=== PATIENT | female | born 1930 | race Caucasian/White ===

== ENCOUNTER 2016-07-07 20:40 | Inpatient (IN) | payer MEDICAID, OTHER ==
[2016-07-07 21:05] VITALS: BMI 22.3
[2016-07-07] MEDS ORDERED: SODIUM CHLORIDE 0.9% 10 ML FLUSH FLUSH PRN (21:08)
--- NOTE | 2016-07-07 21:12 | EDPRACDOC ---
- General Information Information Source: Patient, Family - History of Present Illness Onset: 3 days HPI: Son states swelling in legs with weeping wounds without redness. Denies fever, cough, congestion, cp, sob, abd pain, n/v, changes in bowel or bladder. Hx CHF Mechanism: Reports: Unknown Circumstances: Reports: Spontaneous History of: Reports: Other (CHF) Severity: Reports: Moderate Able to Bear Weight: Limited Associated Signs & Symptoms: Reports: Abrasion, Swelling Pain In: Reports: Foot, Ankle, Leg <Olivia Hall - Last Filed: 07/07/16 21:35> <Gilberto Alvarez - Last Filed: 07/07/16 22:44> - General Information Chief Complaint: Lower Leg Pain Stated Complaint: SICK; LEG SWELLING Time Seen by Provider: 07/07/16 21:04 Home Medications: Home Medications Lisinopril 10 mg PO DAILY 10/13/15 Alprazolam [Xanax] 0.25 mg PO BID PRN 05/30/16 Ergocalciferol (Vitamin D2) [Vitamin D2 (ergocalciferol)] 50,000 units PO TUTH 05/30/16 Polyethylene Glycol 3350 [Miralax] 17 gm PO DAILY PRN 05/30/16 Atorvastatin Calcium [Lipitor] 20 mg PO DAILY #30 tablet 06/03/16 Metoprolol Succinate (XL) [Toprol Xl] 50 mg PO DAILY #30 tablet 06/03/16 Rivaroxaban [Xarelto] 20 mg PO DAILY #30 tablet 06/03/16 Ondansetron HCl [Zofran] 4 mg PO Q8H PRN 06/23/16 Digoxin [Lanoxin, Digitek] 0.125 mg PO DAILY #30 tab 06/28/16 Diltiazem HCl [Cardizem Cd] 240 mg PO QHS #30 cap.er.24h 06/28/16 Amlodipine Besylate [Norvasc] 5 mg PO HS 07/07/16 Allergies/Adverse Reactions: Allergies Allergy/AdvReac Type Severity Reaction Status Date / Time No Known Allergies Allergy Verified 06/23/16 11:19 ED Past Medical History - History Reviewed Yes Nurses notes reviewed and agree except as marked - Patient Medical History Neurological History: Denies: Cerebrovascular Accident, Seizures, Dementia Cardiac History: Reports: Coronary Artery Disease, Atrial Fibrillation, Hypertension (not on medication.), Congestive Heart Failure, Hypercholesterolemia, Valvular Heart Disease. Denies: Heart Attack, Cardiac Catheterization Respiratory History: Reports: COPD, Pneumonia. Denies: Asthma, Pulmonary Embolism GI/ History: Reports: Urinary Tract Infection Musculoskeletal History: Reports: Arthritis (right shoulder) Psychological History: Reports: Anxiety (bilat hip orif). Denies: Depression, Bipolar Disorder, Substance Use Disorder Surgical History: Reports: Other (Right total hip replacement.). Denies: Cholecystectomy, Cardiac Catheterization, Tonsillectomy/Adnoidectomy - Family Medical History Reports: Cardiac Disorders (Father: [place] but lived a long time.). Denies: Hypertension, Diabetes, Cancer, Stroke - Social Medical History Smoking Status: Former smoker Social History: Denies: Substance Use Disorder ETOH: None Substance Abuse: None <Olivia Hall - Last Filed: 07/07/16 21:35> EDM Review of Systems - Review of Systems Constitutional: No Symptoms Reported. negative: Fever, Chills, Weakness, Fatigue, Loss of Appetite Ears: No Symptoms Reported. negative: Pain, Hearing Loss, Drainage, Ear Pulling Throat: No Symptoms Reported. negative: Pain, Swelling Nose: No Symptoms Reported. negative: Congestion, Bleeding, Discharge, Injection, Swelling, Deformity, Ecchymosis, Tender, Abrasion, Laceration Mouth: No Symptoms Reported. negative: Pain, Drooling Respiratory: No Symptoms Reported. negative: Cough, Brassy Cough, Barky Cough, Shortness of Breath, Wheezing, Hemoptysis Cardiovascular: Edema. negative: No Symptoms Reported, Chest Pain, Cyanosis, Orthopnea, Palpitations, PND, Syncope, Skin Mottling Gastrointestinal: No Symptoms Reported. negative: Pain, Constipation, Nausea, Vomiting, Diarrhea, Melena, Formula Intolerance Genitourinary: No Symptoms Reported. negative: Dysuria, Hematuria, Frequency, Discharge, Bleeding, Testicular Pain, Neurological: No Symptoms Reported. negative: Headache, Dizziness, Seizure, Numbness, Weakness, Speech Difficulty, Gait Difficulty Musculoskeletal: Ankle, Foot, Leg Integumentary: Wound Allergic/Immunologic: No Symptoms Reported. negative: Hives, Itching Hematologic: No Symptoms Reported. negative: Lymphadenopathy, Easy Bruising, Easy Bleeding Psychiatric: No Symptoms Reported. negative: Anxiety, Depression, Hallucinations, Insomnia, Suicidal <Olivia Hall - Last Filed: 07/07/16 21:35> - Physical Exam Constitutional: Alert Oriented to: Time, Person, Place Last recorded Vital Signs: Last Vital Signs Temp 99.5 F 07/07/16 21:00 Pulse 102 07/07/16 21:00 Resp 20 07/07/16 21:00 BP 159/64 07/07/16 21:00 Pulse Ox 91 07/07/16 21:00 Oxygen Pulse Oxygen Saturation 91 O2 Device Room Air Oxygen Flow Rate Fraction of Inspired Oxygen ( FIO2) - HEENT Head: Normal ( normocephalic) Eye Exam: Normal (PERRL, EOMI, Sclera white) Neck: Normal (FROM, trachea at midline) - Respiratory/Cardiovascular Respiratory: Normal - CTA (BBS clear to auscultation without adventitious sounds ) Cardiovascular: Normal (RRR without murmur, gallop or rub) - GI Auscultation: Normal (NABS) Palpation: Normal (Soft,No rebound or guarding, non distended) Tenderness: Non tender - Musculoskeletal Back: Normal (Non-Tender) Extremities: Edema (+3 pitting edema), Pedal Edema - Integumentary Skin: Normal, Warm, Dry Lymphatics: Normal (no adenopathy) - Neurologic Memory Impaired: Normal Motor Function: Normal (Normal tone, Pulses 2+ No cyanosis or edema, FROM) Mood Description: Normal Perception: Normal <Olivia Hall - Last Filed: 07/07/16 21:35> - Physical Exam Last recorded Vital Signs: Last Vital Signs Temp 99.5 F 07/07/16 21:00 Pulse 102 07/07/16 21:00 Resp 20 07/07/16 21:00 BP 159/64 07/07/16 21:00 Pulse Ox 91 07/07/16 21:00 Oxygen Pulse Oxygen Saturation 91 O2 Device Room Air Oxygen Flow Rate Fraction of Inspired Oxygen ( FIO2) <Gilberto Alvarez - Last Filed: 07/07/16 22:44> ED Low Extremities Phys Exam - Thigh Bilateral Thigh Symptoms: Normal - Knee Bilateral Knee Symptoms: Normal Knee Ligaments: Normal Knee Meniscus: Normal - Lower Leg Bilateral Lower Leg Symptoms: Swelling, Mild Tenderness - Foot Bilateral Foot Symptoms: Swelling - Ankle Bilateral Ankle Symptoms: Swelling Achilles Tendon: Normal - Nail Bilateral Nail Symptoms: Normal - Nailbed Bilateral Nailbed Symptoms: Normal Soft Tissue: Normal - Digit Bilateral Digit Symptoms: Normal Digit Strength: Normal - Deficits Deficits: None - Integumentary Left Lower Leg Skin: Abrasion. negative: Erythema, Warm Lymphatics: Normal <Olivia Hall - Last Filed: 07/07/16 21:35> - Differential Diagnosis Abrasion, Other (chf, leg edema) - EKG EKG #1 EKG Time: 21:19 Rate: bpm: 102 Gaston: LAD Rhythm: Aflutter Block: None ST: Nonsp - Diagnostic Imaging Chest Image interpreted by: Radiologist IMPRESSION: Cardiomegaly with small pleural effusions bilaterally. Question a degree of underlying congestive heart failure. Interstitium appears prominent without well-defined edema. Suspect a degree of underlying pulmonary fibrotic type change. No airspace consolidation. The overall appearance is stable compared to recent prior study. <Olivia Hall E - Last Filed: 07/07/16 21:35> - Results 07/07/16 22:00 07/07/16 22:00 WBC 8.1 xk/uL (3.8-10.8) 07/07/16 22:00 RBC 3.74 xM/uL (4.20-5.40) L 07/07/16 22:00 Hgb 11.8 g/dL (12.0-16.0) L 07/07/16 22:00 Hct 33.9 % (36-47) L 07/07/16 22:00 MCV 91 fL (81-99) 07/07/16 22:00 MCH 31.5 pg (27-32) 07/07/16 22:00 MCHC 34.6 g/dl (33-36) 07/07/16 22:00 RDW 13.3 % (11.5-14.5) 07/07/16 22:00 Plt Count 124 xk/uL (130-400) L 07/07/16 22:00 MPV 8.1 fL (7.4-10.4) 07/07/16 22:00 Neut % (Auto) 81.2 % (45-76) H 07/07/16 22:00 Lymph % (Auto) 9.2 % (17-44) L 07/07/16 22:00 [place] % (Auto) 8.7 % (3-10) 07/07/16 22:00 Eos % (Auto) 0.5 % (0-5) 07/07/16 22:00 Baso % (Auto) 0.4 % (0-2) 07/07/16 22:00 Absolute Neuts (auto) 6.56 xk/uL (1.7-8.2) 07/07/16 22:00 Absolute Lymphs (auto) 0.73 xk/uL (0.65-4.75) 07/07/16 22:00 PT 14.4 SEC (9.2-11.2) H 07/07/16 22:00 INR 1.4 07/07/16 22:00 APTT 33.6 SEC (22-35) 07/07/16 22:00 Sodium 135 mEq/L (137-146) L 07/07/16 22:00 Potassium 3.7 mEq/L (3.5-5.1) 07/07/16 22:00 Chloride 103 mEq/L (98-107) 07/07/16 22:00 Carbon Dioxide 28 mMOL/L (22-33) 07/07/16 22:00 Anion Gap 8 mEq/L (8-16) 07/07/16 22:00 BUN 10 MG/DL (7-17) 07/07/16 22:00 Creatinine 0.70 MG/DL (0.52-1.04) 07/07/16 22:00 Estimated GFR (MDRD) > 60 mL/min (>=60) 07/07/16 22:00 Glucose 222 MG/DL (70-99) H 07/07/16 22:00 Calculated Osmolality 266 MOs/Kg (270-290) L 07/07/16 22:00 Calcium 7.6 MG/DL (8.4-10.2) L 07/07/16 22:00 Corrected Calcium 9.2 MG/DL (8.4-10.2) 07/07/16 22:00 Total Bilirubin 0.8 MG/DL (0.2-1.3) 07/07/16 22:00 AST 24 IU/L (14-36) 07/07/16 22:00 ALT 44 IU/L (9-52) 07/07/16 22:00 Alkaline Phosphatase 91 IU/L (55-165) 07/07/16 22:00 Troponin I 0.07 ng/mL (<.04) 07/07/16 22:00 Wki-W-Mempvhqmxgq Pept 2710 pg/mL (0-1800) H 07/07/16 22:00 Total Protein 5.3 G/DL (6.3-8.2) L 07/07/16 22:00 Albumin 2.4 G/DL (3.5-5.0) L 07/07/16 22:00 Digoxin 1.10 NG/ML (0.8-2.00) 07/07/16 22:00 Lab Results 07/07/16 07/07/16 07/07/16 22:00 22:00 22:00 WBC 8.1 RBC 3.74 L Hgb 11.8 L Hct 33.9 L MCV 91 MCH 31.5 MCHC 34.6 RDW 13.3 Plt Count 124 L MPV 8.1 Neut % (Auto) 81.2 H Lymph % (Auto) 9.2 L [place] % (Auto) 8.7 Eos % (Auto) 0.5 Baso % (Auto) 0.4 Absolute Neuts (auto) 6.56 Absolute Lymphs (auto) 0.73 PT 14.4 H INR 1.4 APTT 33.6 Sodium Potassium Chloride Carbon Dioxide Anion Gap BUN Creatinine Estimated GFR (MDRD) Glucose Calculated Osmolality Calcium Corrected Calcium Total Bilirubin AST ALT Alkaline Phosphatase Troponin I Quy-Z-Aswiexqjspv Pept Total Protein Albumin Digoxin 1.10 07/07/16 22:00 WBC RBC Hgb Hct MCV MCH MCHC RDW Plt Count MPV Neut % (Auto) Lymph % (Auto) [place] % (Auto) Eos % (Auto) Baso % (Auto) Absolute Neuts (auto) Absolute Lymphs (auto) PT INR APTT Sodium 135 L Potassium 3.7 Chloride 103 Carbon Dioxide 28 Anion Gap 8 BUN 10 Creatinine 0.70 Estimated GFR (MDRD) > 60 Glucose 222 H Calculated Osmolality 266 L Calcium 7.6 L Corrected Calcium 9.2 Total Bilirubin 0.8 AST 24 ALT 44 Alkaline Phosphatase 91 Troponin I 0.07 Ygm-N-Kqkmmntkjhb Pept 2710 H Total Protein 5.3 L Albumin 2.4 L Digoxin <Gilberto Alvarez - Last Filed: 07/07/16 22:44> <Olivia Hall - Last Filed: 07/07/16 21:35> - Departure Yes I personally saw and evaluated the patient. Disposition: Admit IP To This Hospital Education/Counseling Given To: Patient Education/Counseling Given Regarding: Diagnosis, Treatment, Prognosis Decision to Admit Time: 22:44 Decision to admit date: 07/07/16 Decision to admit: from ED - Physician Consulted Hospitalist Time Called: 22:44 Provider Called: Art Robertson Time Milk Driver Returned Call: 22:44 <Gilberto Alvarez - Last Filed: 07/07/16 22:44> - Departure Condition: Fair Final Diagnosis: indeterminate troponin CHF exacerbation Qualifiers: Congestive heart failure type: systolic Qualified Code(s): I50.23 - Acute on chronic systolic (congestive) heart failure Chest pain Qualifiers: Chest pain type: other chest pain Qualified Code(s): R07.89 - Other chest pain ; R07.8 - Other chest pain Instructions: *Heart Failure (Activity, Diet, Worsening Symptoms, Weight Monitoring)(ED), Chest Pain (ED), Chest Wall Pain
--- NOTE | 2016-07-07 21:34 | DIRPT ---
CLINICAL DATA: Lower extremity edema. Atrial fibrillation. EXAM: PORTABLE CHEST 1 VIEW COMPARISON: June 24, 2016 FINDINGS: There are small pleural effusions bilaterally. There is generalized interstitial prominence without zayda edema or consolidation. Heart is mildly enlarged with pulmonary vascularity within normal limits. There is atherosclerotic calcification in aorta. There is degenerative change in each shoulder. IMPRESSION: Cardiomegaly with small pleural effusions bilaterally. Question a degree of underlying congestive heart failure. Interstitium appears prominent without well-defined edema. Suspect a degree of underlying pulmonary fibrotic type change. No airspace consolidation. The overall appearance is stable compared to recent prior study. Electronically Signed By: Anderson Archuleta III, M.D. On: 07/07/2016 21:31
[2016-07-07 22:07] LABS: AUTOMATED BASOPHIL 0.4 % (0-2); AUTOMATED EOSINOPHIL 0.5 % (0-5); AUTOMATED LYMPH 9.2 % (17-44); AUTOMATED MONOCYTE 8.7 % (3-10); AUTOMATED NEUTROPHIL 81.2 % (45-76); MPV 8.1 fL (7.4-10.4)
[2016-07-07 22:14] LABS: PARTIAL THROMB. TIME 33.6 SEC (22-35); PT-INR 1.4
[2016-07-07 22:21] LABS: BLOOD UREA NITROGEN 10 MG/DL (7-17); CALC CORRECTED 9.2 MG/DL (8.4-10.2); CALCIUM 7.6 MG/DL (8.4-10.2); CALCULATED OSMOLALITY 266 MOs/Kg (270-290); CHLORIDE 103 mEq/L (98-107); GLUCOSE 222 MG/DL (70-99); SODIUM LEVEL 135 mEq/L (137-146); TOTAL PROTEIN 5.3 G/DL (6.3-8.2)
[2016-07-07] MEDS ORDERED: FUROSEMIDE 20 MG TAB PO ONE (22:26)
[2016-07-07] MEDS ORDERED: FUROSEMIDE 20 MG/2 ML VIAL IV ONE (22:43)
[2016-07-07 22:55] LABS: ALLEN'S TEST PASS; BEb 2.9 (+/- 2); TCO2 26.7 MMOL/L (23-27)
[2016-07-07 22:56] LABS: ABG Draw Site Right Radial
[2016-07-07] MEDS ORDERED: GLUCOSE (ORAL GEL) 15 GM TUBE PO PRN (23:27)
[2016-07-07] MEDS ORDERED: DEXTROSE 25 GM/50 ML PFS IV PRN (23:27)
[2016-07-07] MEDS ORDERED: GLUCAGON 1 MG VIAL SQ PRN (23:27)
[2016-07-07] MEDS ORDERED: Albuterol/Ipratropium Neb 3 ML NEB NEB PRN (23:27)
[2016-07-07] MEDS ORDERED: ONDANSETRON HCL 4 MG ODT TAB PO PRN (23:35)
[2016-07-07] MEDS ORDERED: ALPRAZOLAM 0.25 MG TAB PO PRN (23:35)
[2016-07-07] MEDS ORDERED: PEG-ELECTROLYTE 17 GM PACK PO PRN (23:35)
--- NOTE | 2016-07-07 23:40 | HISTPHYS ---
- Chief Complaint sob, legs swelling with fluid leaking, - History of Present Illness 86 yo wf presented emergency room early on today for evaluation of worsening difficulties breathing and peripheral edema.. Patient reports that since recent discharge from [facility] she has been compliant with medical regimen and with no salt diet. Despite that she has gained weight, developed worsening leg edema and she has developed worsening difficulties breathing with PND orthopnea. Patient reports of the past couple days she has noticed fluid dripping from her legs. On arrival in ED she was found hypoxic with PaO2 of only 57 and in moderate respiratory distress. Medical consultation was phoned in for inpatient treatment. - Medical History Cardiac History: Reports: Coronary Artery Disease, Atrial Fibrillation, Hypertension (not on medication.), Congestive Heart Failure, Hypercholesterolemia, Valvular Heart Disease. Denies: Heart Attack, Cardiac Catheterization Respiratory History: Reports: COPD, Pneumonia. Denies: Asthma, Pulmonary Embolism GI/ History: Reports: Urinary Tract Infection, Gastroesophageal Reflux Musculoskeletal History: Reports: Arthritis (right shoulder), Osteoarthritis Neurological History: Denies: Cerebrovascular Accident, Seizures, Dementia Psychological History: Reports: Anxiety (bilat hip orif). Denies: Depression, Bipolar Disorder, Substance Use Disorder - Surgical History Reports: Other (Right total hip replacement bilat). Denies: Cholecystectomy, Cardiac Catheterization, Tonsillectomy/Adnoidectomy - Medictions/Allergies Allergies No Known Allergies Allergy (Verified 06/23/16 11:19) Current Medication List: Reviewed Home Medications Lisinopril 10 mg PO DAILY 10/13/15 Alprazolam [Xanax] 0.25 mg PO BID PRN 05/30/16 Ergocalciferol (Vitamin D2) [Vitamin D2 (ergocalciferol)] 50,000 units PO TUTH 05/30/16 Polyethylene Glycol 3350 [Miralax] 17 gm PO DAILY PRN 05/30/16 Atorvastatin Calcium [Lipitor] 20 mg PO DAILY #30 tablet 06/03/16 Metoprolol Succinate (XL) [Toprol Xl] 50 mg PO DAILY #30 tablet 06/03/16 Rivaroxaban [Xarelto] 20 mg PO DAILY #30 tablet 06/03/16 Ondansetron HCl [Zofran] 4 mg PO Q8H PRN 06/23/16 Digoxin [Lanoxin, Digitek] 0.125 mg PO DAILY #30 tab 12/31/16 Diltiazem HCl [Cardizem Cd] 240 mg PO QHS #30 cap.er.24h 06/28/16 Amlodipine Besylate [Norvasc] 5 mg PO HS 07/07/16 - Family History Reports: Cardiac Disorders (Father: [place] but lived a long time.), Respiratory Disorders. Denies: Hypertension, Diabetes, Cancer, Stroke - Social History Travel Outside of [place] in the Last 3 Months?: No Lives: With Family Smoking Status: Former smoker Social History: Denies: Substance Use Disorder - Review of Systems Constitutional: Loss of Appetite, Weakness, Weight gain Eyes: No Symptoms Reported Ears: No Symptoms Reported Nose: No Symptoms Reported Mouth: No Symptoms Reported Throat/Neck: No Symptoms Reported Respiratory: Shortness of Breath, Dyspnea Cardiovascular: Orthopnea, PND Gastrointestinal: Constipation, Heartburn Genitourinary: No Symptoms Reported Neurological: Numbness, Weakness Musculoskeletal:: Arthritis Integumentary: No Symptoms Reported Allergic/Immunologic: No Symptoms Reported Hematologic: No Symptoms Reported Endocrine: No Symptoms Reported Psychiatric: No Symptoms Reported - Physical Exam Vital Signs: Initial Vitals Temperature 99.5 F 07/07/16 21:00 Pulse Rate 102 07/07/16 21:00 Respiratory Rate 07/07/16 21:00 Blood Pressure 159/64 07/07/16 21:00 Pulse Oxygen Saturation 91 07/07/16 21:00 Constitutional: Alert, Distress Oriented to: Time, Person, Place - HEENT Head: Normal Eye: Normal Oropharynx: Normal ENT EAC: Normal TMJ: Normal Nose: No Symptoms Reported Respiratory: Diminished, Rales, Tachypnea, Wheezes Cardiovascular: Normal, Systolic murmur - GI Auscultation: Normal Palpation: Normal Tenderness: Non tender Rectal Exam: Deferred - Exam Deferred: Yes - Musculoskeletal Back: Normal Extremities: Cyanosis, Edema Spine: limited range of motion - Integumentary Skin: Normal, Warm, Dry Lymphatics: Normal - Neurologic Memory Impaired: Normal, Short-term Motor Function: Abnormal Cranial Nerve: Normal Cerebellar: Normal Mood Description: Normal, Anxious Thought: Coherent Perception: Normal - Focused CV Perfusion Exam Vital Signs: Last Vital Signs Temp 99.5 F 07/07/16 21:00 Pulse 102 07/07/16 21:00 Resp 20 07/07/16 21:00 BP 159/64 07/07/16 21:00 Pulse Ox 91 07/07/16 21:00 - Diagnostic Findings Allergies No Known Allergies Allergy (Verified 06/23/16 11:19) 07/07/16 22:00 07/07/16 22:00 Abnormal Lab Results 07/07/16 07/07/16 07/07/16 22:00 22:00 22:00 RBC 3.74 L Hgb 11.8 L Hct 33.9 L Plt Count 124 L Neut % (Auto) 81.2 H Lymph % (Auto) 9.2 L PT 14.4 H pH pCO2 pO2 Base Excess Sodium 135 L Glucose 222 H Calculated Osmolality 266 L Calcium 7.6 L Wnq-X-Bgailesxgra Pept 2710 H Total Protein 5.3 L Albumin 2.4 L 07/07/16 22:50 RBC Hgb Hct Plt Count Neut % (Auto) Lymph % (Auto) PT pH 7.500 H pCO2 33.0 L pO2 57.0 L Base Excess 2.9 H Sodium Glucose Calculated Osmolality Calcium Aaj-Q-Wxvkxhlvttk Pept Total Protein Albumin Last Vital Signs Temp 99.5 F 07/07/16 21:00 Pulse 102 07/07/16 21:00 Resp 20 07/07/16 21:00 BP 159/64 07/07/16 21:00 Pulse Ox 91 07/07/16 21:00 Patient Name: ZURI PATRICIA LOC: ED : 1930 AGE: 86 Order Date:07/07/16 Date of Service:03/15 Report # [id number] Ord Physician: Olivia Hall Exam # [id number] Emergency Physician: Provider,ER Exam(s): [id number] RAD/DG CHEST PORTABLE CLINICAL DATA: Lower extremity edema. Atrial fibrillation. EXAM: PORTABLE CHEST 1 VIEW COMPARISON: June 24, 2016 FINDINGS: There are small pleural effusions bilaterally. There is generalized interstitial prominence without zayda edema or consolidation. Heart is mildly enlarged with pulmonary vascularity within normal limits. There is atherosclerotic calcification in aorta. There is degenerative change in each shoulder. IMPRESSION: Cardiomegaly with small pleural effusions bilaterally. Question a degree of underlying congestive heart failure. Interstitium appears prominent without well-defined edema. Suspect a degree of underlying pulmonary fibrotic type change. No airspace consolidation. The overall appearance is stable compared to recent prior study. Electronically Signed By: Anderson Archuleta III, M.D. On: 07/07/2016 21:31 Electronically EKG:aflutter - Assessment (1) CHF exacerbation I50.9 - HEART FAILURE, UNSPECIFIED Acute Present on Admission: Yes Qualifiers: Congestive heart failure type: systolic Qualified Code(s): I50.23 - Acute on chronic systolic (congestive) heart failure Patient be admitted to monitor bed patient will be admitted to monitor bed, she received Lasix 60 mg IV q.12 hours. Monitor weight and fluid balance. (2) Acute on chronic respiratory failure with hypoxemia J96.21 - ACUTE AND CHRONIC RESPIRATORY FAILURE WITH HYPOXIA Acute Present on Admission: Yes Continue supplemental O2. Monitor pulmonary status. (3) Atrial fibrillation with RVR I48.91 - UNSPECIFIED ATRIAL FIBRILLATION Chronic Present on Admission: Yes Continue home meds. Keep magnesium more than 2 and potassium more than 4. Continue anticoagulation of Xarelto (4) HTN (hypertension) I10 - ESSENTIAL (PRIMARY) HYPERTENSION Acute Present on Admission: Yes Qualifiers: Hypertension type: essential hypertension Qualified Code(s): I10 - Essential (primary) hypertension Continue home meds keep SBP less than 140. (5) COPD (chronic obstructive pulmonary disease) with emphysema J43.9 - EMPHYSEMA, UNSPECIFIED Chronic Present on Admission: Yes Qualifiers: Emphysema type: unspecified Qualified Code(s): J43.9 - Emphysema, unspecified Continue supplemental O2 and nebulized bronchodilators. Continue incentive spirometer as well (6) GERD (gastroesophageal reflux disease) K21.9 - GASTRO-ESOPHAGEAL REFLUX DISEASE WITHOUT ESOPHAGITIS Chronic Present on Admission: Yes Qualifiers: Esophagitis presence: without esophagitis Qualified Code(s): K21.9 - Gastro -esophageal reflux disease without esophagitis Continue PPI Case Care Discussed with: Patient, Family, Nursing Staff Total Time: 60 min . Critical Care: No Code: 15866
[2016-07-07] MEDS ORDERED: NS 1,000 ML IV SCH (23:45)
[2016-07-08 00:38] LABS: LEUKOCYTES/URINE NEG (NEGATIVE); NITRITE/URINE NEG (NEGATIVE); RBC/URINE 0-2 (0-5); URINE OCCULT BLOOD NEG (NEG/TRACE)
[2016-07-08] MEDS ORDERED: FUROSEMIDE 40 MG/4 ML VIAL IV SCH (01:00)
[2016-07-08] MEDS: REGULAR INSULIN 100 UNITS/ML - 3 ML VIAL SQ SCH ×4 (01:55→16:40)
[2016-07-08] MEDS ORDERED: Vaccine Screening Complete SCH (02:00)
[2016-07-08] MEDS: Albuterol/Ipratropium Neb 3 ML NEB NEB SCH ×3 (03:24→15:06)
[2016-07-08 04:28] LABS: BLOOD UREA NITROGEN 10 MG/DL (7-17); CALCIUM 7.6 MG/DL (8.4-10.2); CALCULATED OSMOLALITY 264 MOs/Kg (270-290); CHLORIDE 101 mEq/L (98-107); GLUCOSE 149 MG/DL (70-99); SODIUM LEVEL 136 mEq/L (137-146)
[2016-07-08] MEDS: LISINOPRIL 10 MG TAB PO SCH (08:51)
[2016-07-08] MEDS: POTASSIUM CHLORIDE 20 MEQ TAB PO SCH ×2 (08:54→16:40)
[2016-07-08] MEDS: DIGOXIN 0.125 MG TAB PO SCH (08:54)
[2016-07-08] MEDS: ATORVASTATIN 20 MG TAB PO SCH (08:55)
[2016-07-08] MEDS ORDERED: Non-Formulary Medication ITEM (Rivaroxaban [Xarelto] 20 MG) PO SCH (09:00)
[2016-07-08] MEDS ORDERED: METOPROLOL (TOPROL-XL) 50 MG TAB PO SCH (09:00)
[2016-07-08] MEDS ORDERED: ERGOCALCIFEROL (VITAMIN D2) 50000 UNITS CAP PO SCH (09:00)
[2016-07-08] MEDS ORDERED: RIVAROXABAN 10 MG TAB PO SCH (09:00)
--- NOTE | 2016-07-08 09:34 | GENMEDPROG ---
Chief Complaint: Feels okay. No complaints. Minimal peripheral edema. Denies chest pain or shortness of breath. Heart rate is currently stable. Notes Reviewed: Yes Events from last night noted and discussed with Clinical Staff Current Medication List: Reviewed Currently: Denies: Cough, Wheezing, PANTOJA, SOB, Nausea and Vomiting, Abdominal Pain, Chest Pain DVT Prophylaxis: Yes - Physical Examination Vital Signs and I&O: Last Vital Signs Temp 98.9 F 07/08/16 08:00 Pulse 95 07/08/16 08:00 Resp 20 07/08/16 08:00 BP 107/51 L 07/08/16 08:00 Pulse Ox 97 07/08/16 08:00 Oxygen Pulse Oxygen Saturation 97 O2 Device Nasal Cannula Oxygen Flow Rate 2 Fraction of Inspired Oxygen ( FIO2) Intake & Output 07/05/16 07/06/16 07/07/16 07/08/16 23:59 23:59 23:59 23:59 Intake Total 0 Output Total 1200 Balance -1200 Patient's weight 59.024 kg General: Alert, Oriented x3, Cooperative, No acute distress. negative: Well appearing (Chronically ill-appearing) HEENT: Normal, PERRLA, EOMI, Anicteric Sclera Neck: Non-tender, Full range of motion, Normal Trachea alignment, Normal inspection. negative: JVD Lymphatics: Normal. negative: Adenopathy Respiratory: Diminished (But otherwise clear) Cardiovascular: Regular rate and rhythm, Irregular GI: Normal bowel sounds, Soft, Non tender, No hepatospenomegaly Extremities/Musculoskeletal: Normal pulses, Swelling (Mild. Significant wrinkling over lower extremities.), Edema Skin: Warm,Dry and Intact, No rashes, No breakdown Neurological: Normal speech, Strength at 5/5 X4 ext, Normal tone, Cranial nerves 3-12 NL Psych/Mental Status: Appropriate, Normal Affect, Cooperative Lab/DI/Studies Reviewed: Laboratory Results - last 24 hr 07/07/16 07/07/16 07/07/16 22:00 22:00 22:00 WBC 8.1 RBC 3.74 L Hgb 11.8 L Hct 33.9 L MCV 91 MCH 31.5 MCHC 34.6 RDW 13.3 Plt Count 124 L MPV 8.1 Neut % (Auto) 81.2 H Lymph % (Auto) 9.2 L [place] % (Auto) 8.7 Eos % (Auto) 0.5 Baso % (Auto) 0.4 Absolute Neuts (auto) 6.56 Absolute Lymphs (auto) 0.73 PT 14.4 H INR 1.4 APTT 33.6 Puncture Site pH pCO2 pO2 HCO3 Total CO2 Base Excess FiO2 % Specimen Drawn By Sodium 135 L Potassium 3.7 Chloride 103 Carbon Dioxide 28 Anion Gap 8 BUN 10 Creatinine 0.70 Estimated GFR (MDRD) > 60 Glucose 222 H POC Capillary Glucose Calculated Osmolality 266 L Calcium 7.6 L Corrected Calcium 9.2 Magnesium Total Bilirubin 0.8 AST 24 ALT 44 Alkaline Phosphatase 91 Troponin I 0.07 Aij-O-Mmuvnbssqwn Pept 2710 H Total Protein 5.3 L Albumin 2.4 L TSH Urine Color Urine Clarity Urine pH Ur Specific [place] Urine Protein Urine Glucose (UA) Urine Ketones Urine Occult Blood Urine Nitrite Urine Bilirubin Urine Urobilinogen Ur Leukocyte Esterase Urine RBC Ur Epithelial Cells Urine Mucus Digoxin 07/07/16 07/07/16 07/07/16 22:00 22:00 22:50 WBC RBC Hgb Hct MCV MCH MCHC RDW Plt Count MPV Neut % (Auto) Lymph % (Auto) [place] % (Auto) Eos % (Auto) Baso % (Auto) Absolute Neuts (auto) Absolute Lymphs (auto) PT INR APTT Puncture Site Right radial pH 7.500 H pCO2 33.0 L pO2 57.0 L HCO3 25.7 Total CO2 26.7 Base Excess 2.9 H FiO2 % Room air Specimen Drawn By Daniel Sodium Potassium Chloride Carbon Dioxide Anion Gap BUN Creatinine Estimated GFR (MDRD) Glucose POC Capillary Glucose Calculated Osmolality Calcium Corrected Calcium Magnesium Total Bilirubin AST ALT Alkaline Phosphatase Troponin I Ydz-D-Jijizzcioai Pept Total Protein Albumin TSH 5.13 H Urine Color Urine Clarity Urine pH Ur Specific [place] Urine Protein Urine Glucose (UA) Urine Ketones Urine Occult Blood Urine Nitrite Urine Bilirubin Urine Urobilinogen Ur Leukocyte Esterase Urine RBC Ur Epithelial Cells Urine Mucus Digoxin 1.10 07/08/16 07/08/16 07/08/16 00:05 00:50 01:29 WBC RBC Hgb Hct MCV MCH MCHC RDW Plt Count MPV Neut % (Auto) Lymph % (Auto) [place] % (Auto) Eos % (Auto) Baso % (Auto) Absolute Neuts (auto) Absolute Lymphs (auto) PT INR APTT Puncture Site pH pCO2 pO2 HCO3 Total CO2 Base Excess FiO2 % Specimen Drawn By Sodium Potassium Chloride Carbon Dioxide Anion Gap BUN Creatinine Estimated GFR (MDRD) Glucose POC Capillary Glucose 151 H Calculated Osmolality Calcium Corrected Calcium Magnesium Total Bilirubin AST ALT Alkaline Phosphatase Troponin I 0.07 Aco-W-Trabqwcawlv Pept Total Protein Albumin TSH Urine Color Yellow Urine Clarity Clear Urine pH 6.0 Ur Specific [place] 1.010 Urine Protein Neg Urine Glucose (UA) 3+ H Urine Ketones Neg Urine Occult Blood Neg Urine Nitrite Neg Urine Bilirubin Neg Urine Urobilinogen 8 H Ur Leukocyte Esterase Neg Urine RBC 0-2 Ur Epithelial Cells Occ Urine Mucus Occ Digoxin 07/08/16 07/08/16 07/08/16 04:00 04:00 06:19 WBC RBC Hgb Hct MCV MCH MCHC RDW Plt Count MPV Neut % (Auto) Lymph % (Auto) [place] % (Auto) Eos % (Auto) Baso % (Auto) Absolute Neuts (auto) Absolute Lymphs (auto) PT INR APTT Puncture Site pH pCO2 pO2 HCO3 Total CO2 Base Excess FiO2 % Specimen Drawn By Sodium 136 L Potassium 3.3 L Chloride 101 Carbon Dioxide 30 Anion Gap 8 BUN 10 Creatinine 0.70 Estimated GFR (MDRD) > 60 Glucose 149 H POC Capillary Glucose 130 H Calculated Osmolality 264 L Calcium 7.6 L Corrected Calcium Magnesium 1.60 Total Bilirubin AST ALT Alkaline Phosphatase Troponin I 0.08 Rps-C-Vpfubvqimmm Pept Total Protein Albumin TSH Urine Color Urine Clarity Urine pH Ur Specific [place] Urine Protein Urine Glucose (UA) Urine Ketones Urine Occult Blood Urine Nitrite Urine Bilirubin Urine Urobilinogen Ur Leukocyte Esterase Urine RBC Ur Epithelial Cells Urine Mucus Digoxin - Assessment (1) CHF exacerbation Acute I50.9 - HEART FAILURE, UNSPECIFIED Qualifiers: Congestive heart failure type: systolic Qualified Code(s): I50.23 - Acute on chronic systolic (congestive) heart failure Comment/Plan: Decrease Lasix dose. Recommendations from Cardiology on previous evaluation had been to focus on AFib rate control. Hope was that EF would improve and CHF would be stable. Lower extremity edema appears much better. Will continue Lasix but at lower dose. Out of bed and ambulate. Patient states that she feels well with no respiratory difficulty (2) HTN (hypertension) Acute I10 - ESSENTIAL (PRIMARY) HYPERTENSION Qualifiers: Hypertension type: essential hypertension Qualified Code(s): I10 - Essential (primary) hypertension Comment/Plan: Blood pressure stable. This had been an issue last hospitalization with relative hypotension. We are attempting to manage rapid AFib but were unable to titrate medications too aggressively (3) Essential (primary) hypertension Acute I10 - ESSENTIAL (PRIMARY) HYPERTENSION Comment/Plan: Continue home medication metoprolol at increased dose, for rate control as well. (4) Atrial fibrillation with RVR Chronic I48.91 - UNSPECIFIED ATRIAL FIBRILLATION Comment/Plan: Continue home meds. Keep magnesium more than 2 and potassium more than 4. Continue anticoagulation of Xarelto Case Care Discussed with: Patient, Nursing Staff, Physical Therapy, Resource Management, Respiratory Therapy, Editor Dictionary
[2016-07-08] MEDS ORDERED: AMLODIPINE 5 MG TAB PO SCH (21:00)
[2016-07-09] MEDS: REGULAR INSULIN 100 UNITS/ML - 3 ML VIAL SQ SCH ×3 (00:04→11:35)
[2016-07-09] MEDS: Albuterol/Ipratropium Neb 3 ML NEB NEB SCH ×2 (00:44→08:39)
[2016-07-09 05:25] LABS: AUTOMATED BASOPHIL 0.3 % (0-2); AUTOMATED EOSINOPHIL 0.8 % (0-5); AUTOMATED LYMPH 17.3 % (17-44); AUTOMATED MONOCYTE 9.3 % (3-10); AUTOMATED NEUTROPHIL 72.3 % (45-76); MPV 8.4 fL (7.4-10.4)
[2016-07-09 05:35] LABS: BLOOD UREA NITROGEN 12 MG/DL (7-17); CALCIUM 7.9 MG/DL (8.4-10.2); CALCULATED OSMOLALITY 262 MOs/Kg (270-290); CHLORIDE 103 mEq/L (98-107); GLUCOSE 127 MG/DL (70-99); SODIUM LEVEL 135 mEq/L (137-146)
[2016-07-09 07:49] VITALS: BP 125/58; TEMP 98.5
[2016-07-09] MEDS ORDERED: RIVAROXABAN 10 MG TAB PO SCH (08:00)
[2016-07-09] MEDS ORDERED: FUROSEMIDE 40 MG TAB PO SCH (08:00)
--- NOTE | 2016-07-09 08:03 | PCM.DCS92 ---
- Final/Secondary Discharge Diagnosis (1) CHF exacerbation Acute I50.9 - HEART FAILURE, UNSPECIFIED Present on Admission: Yes systolic I50.23 - Acute on chronic systolic (congestive) heart failure Comment: Doing well. Diuresed well. Minimal peripheral edema. Stable for discharge home and blood pressures should be able to tolerate low-dose Lasix. Recommendations from Cardiology on previous evaluation had been to focus on AFib rate control. Hope was that EF would improve and CHF would be stable. Patient states that she feels well with no respiratory difficulty (2) HTN (hypertension) Acute I10 - ESSENTIAL (PRIMARY) HYPERTENSION Present on Admission: Yes essential hypertension I10 - Essential (primary) hypertension Comment: Blood pressure stable. This had been an issue last hospitalization with relative hypotension. We are attempting to manage rapid AFib but were unable to titrate medications too aggressively (3) Essential (primary) hypertension Acute I10 - ESSENTIAL (PRIMARY) HYPERTENSION Comment: Continue home medication metoprolol at increased dose, for rate control as well. (4) Atrial fibrillation with RVR Chronic I48.91 - UNSPECIFIED ATRIAL FIBRILLATION Present on Admission: Yes Comment: Continue home meds. Keep magnesium more than 2 and potassium more than 4. Continue anticoagulation of Xarelto Discharge Disposition: Discharge w/ Home Health Discharge Condition: Improved Cognitive Discharge Status: Unimpaired Fuctional Discharge Status: Independent Physician Follow up/Referrals: Jill Wade MD [Primary Care Provider] - 1-2 weeks New Prescriptions: Furosemide [Lasix] 40 mg PO DAILY@0800 #30 tablet Discharge Home Medication List Lisinopril 10 mg PO DAILY 10/13/15 [History Confirmed 07/07/16 Last Taken ] Alprazolam [Xanax] 0.25 mg PO BID PRN 05/30/16 [History Confirmed 07/07/16 Last Taken 07/07/16] Ergocalciferol (Vitamin D2) [Vitamin D2 (ergocalciferol)] 50,000 units PO TUTH 05/30/16 [History Confirmed 07/07/16 Last Taken 07/07/16] Polyethylene Glycol 3350 [Miralax] 17 gm PO DAILY PRN 05/30/16 [History Confirmed 07/07/16 Last Taken Unknown] Atorvastatin Calcium [Lipitor] 20 mg PO DAILY #30 tablet 06/03/16 [Rx Confirmed 07/07/16 Last Taken 07/07/16] Rivaroxaban [Xarelto] 20 mg PO DAILY #30 tablet 06/03/16 [Rx Confirmed 07/07/16 Last Taken 07/07/16] Ondansetron HCl [Zofran] 4 mg PO Q8H PRN 06/23/16 [History Confirmed 07/07/16 Last Taken 06/20/16] Digoxin [Lanoxin, Digitek] 0.125 mg PO DAILY #30 tab 06/28/16 [Rx Confirmed 03/15 Last Taken 07/07/16] Diltiazem HCl [Cardizem Cd] 240 mg PO QHS #30 cap.er.24h 06/28/16 [Rx Confirmed 07/07/16 Last Taken 07/07/16] Amlodipine Besylate [Norvasc] 5 mg PO HS 07/07/16 [History Confirmed 07/07/16 Last Taken 07/07/16] Metoprolol Succinate (XL) [Toprol Xl] 25 mg PO DAILY 07/08/16 [History Confirmed 07/08/16 Last Taken Unknown] Furosemide [Lasix] 40 mg PO DAILY@0800 #30 tablet 07/09/16 [Rx Last Taken Unknown] O2 Device: Nasal Cannula Diet at Discharge: Heart Healthy, Low Salt Activity: No Restrictions Call Office For: Worsening Symptoms - DC Summary Notes Hospital Course Note:: Discharge summary on patient named ZURI PATRICIA admitted to [facility] on 07/07/16 by Art Robertson MD. Date of discharge is []. Mrs Patricia is an 86-year-old white female with history of cardiomyopathy and known EF of 20-25%. She was recently hospitalized for urinary tract infection and rapid AFib. Cardiology has evaluated over the course of the last month and had recommended rate control this most important measure in managing her cardiomyopathy and CHF. Due to relative hypotension she was not on any diuretics. She was discharged home with recommendations to monitor salt intake and fluid intake. She returned with increasing lower extremity edema and associated weeping fluid. She was otherwise stable but given the increasing edema was admitted to the hospital. She was started on IV Lasix in converted over to oral Lasix. She diuresed well and has minimal peripheral edema at this point time. Her heart rate has remained stable and her respiratory status is stable. At this point she is back to her baseline and is stable for discharge home. Her blood pressures have tolerated the lower dose of Lasix and we will continue this after discharge. She is to follow up with the primary physician in the next 1-2 weeks and to call or return with any problems. Total Time: 45 minutes - Physical Exam Vital Signs: Last Vital Signs Temp 98.5 F 07/09/16 07:48 Pulse 79 07/09/16 07:48 Resp 20 07/09/16 07:48 BP 125/58 L 07/09/16 07:48 Pulse Ox 94 07/09/16 07:48 Oxygen Pulse Oxygen Saturation 94 O2 Device Nasal Cannula Oxygen Flow Rate 2 Fraction of Inspired Oxygen ( FIO2) Constitutional: No apparent distress, Alert, Well nourished, Well appearing Oriented to: Time, Person, Place - HEENT Head: Normal Eye: Normal Oropharynx: Normal ENT EAC: Normal TMJ: Normal Nose: No Symptoms Reported - Respiratory/Cardiovascular Respiratory: Diminished (But otherwise clear) Cardiovascular: Normal - GI Auscultation: Normal Palpation: Normal Tenderness: Non tender Rectal Exam: Deferred - Musculoskeletal Back: Normal Extremities: Cyanosis, Edema (minimal) - Integumentary Skin: Warm, Dry Lymphatics: Normal. negative: Adenopathy - Neurologic Memory Impaired: Normal, Short-term Motor Function: Normal Cranial Nerve: Normal Cerebellar: Normal Mood Description: Normal, Anxious Thought: Coherent Perception: Normal
[2016-07-09] MEDS ORDERED: METOPROLOL (TOPROL-XL) 25 MG TAB PO SCH (09:00)
[2016-07-09] MEDS: POTASSIUM CHLORIDE 20 MEQ TAB PO SCH (09:05)
[2016-07-09] MEDS: LISINOPRIL 10 MG TAB PO SCH (09:06)
[2016-07-09] MEDS: ATORVASTATIN 20 MG TAB PO SCH (09:06)
[2016-07-09] MEDS: DIGOXIN 0.125 MG TAB PO SCH (09:06)
[2016-07-09 09:09] VITALS: PULSE 101
== END 2016-07-09 11:49 | disposition home health service (06) | DRG 291 ==
LOC: ED 20:40 → PCU 23:27
PROVIDERS: ADMIT Internal Medicine; ATTEND Hospitalist
PROC: 039B3ZZ Drainage of Right Radial Artery, Percutaneous Approach (ICD-10-PCS; principal; 2016-07-07)
DX: I50.23 Acute on chronic systolic (congestive) heart failure (principal); J96.21 Acute and chronic respiratory failure with hypoxia; I42.9 Cardiomyopathy, unspecified; I10 Essential (primary) hypertension; I48.91 Unspecified atrial fibrillation; I25.10 Atherosclerotic heart disease of native coronary artery without angina pectoris; E78.00 Pure hypercholesterolemia, unspecified; J44.9 Chronic obstructive pulmonary disease, unspecified; K21.9 Gastro-esophageal reflux disease without esophagitis; M19.90 Unspecified osteoarthritis, unspecified site; F41.9 Anxiety disorder, unspecified; Z79.899 Other long term (current) drug therapy; Z87.891 Personal history of nicotine dependence
CPT/HCPCS: 36415; 36600; 71010; 80048; 80053; 80162; 81001; 82803; 82962; 83735; 83880; 84443; 84484; 85025; 85610; 85730; 93005; 94640; 96372; 96374; 99283; G0237; J1940; J3490; J7620

== ENCOUNTER 2016-07-27 09:09 | Inpatient (IN) | payer OTHER ==
--- NOTE | 2016-07-27 09:37 | EDPRACDOC ---
- History of Present Illness HPI: NOTE SEEN AND EXAMINED; HERE WITH FEVER AND SHOB; RECORDS REVIEWED. <Jaswinder Small - Last Filed: 07/27/16 10:39> - General Information Information Source: Patient - History of Present Illness HPI: C/o fever up to 101, panting, nausea, leaking stool, weakness, dec appetite x 2 days. Denies cp, sob, V/D, changes in urine or BM. Lives at home with daughter and son in law. Normally ambulates with walker, but has not for the past 2 days due to weakness and nausea. Hx of CHF. Son in law is historian and is not very aware of her medical conditions. PCP closed on thursday. Takes xarelto, digoxin, cardizem. Symptoms: Reports: Fever, Nausea, Weakness <Raghav Lee - Last Filed: 07/27/16 18:52> - General Information Stated Complaint: BREATHING DIFFICULTY Home Medications: Home Medications Lisinopril 10 mg PO DAILY 10/13/15 Alprazolam [Xanax] 0.25 mg PO BID PRN 05/30/16 Ergocalciferol (Vitamin D2) [Vitamin D2 (ergocalciferol)] 50,000 units PO TUTH 05/30/16 Rivaroxaban [Xarelto] 20 mg PO DAILY #30 tablet 06/03/16 Digoxin [Lanoxin, Digitek] 0.125 mg PO DAILY #30 tab 06/28/16 Diltiazem HCl [Cardizem Cd] 240 mg PO QHS #30 cap.er.24h 06/28/16 Amlodipine Besylate [Norvasc] 5 mg PO HS 07/07/16 Metoprolol Succinate (XL) [Toprol Xl] 25 mg PO DAILY 07/08/16 Furosemide [Lasix] 40 mg PO DAILY@0800 #30 tablet 07/09/16 Atorvastatin Calcium [Lipitor] 20 mg PO DAILY 07/27/16 Allergies/Adverse Reactions: Allergies Allergy/AdvReac Type Severity Reaction Status Date / Time No Known Allergies Allergy Verified 07/27/16 13:43 ED Past Medical History - History Reviewed Yes Nurses notes reviewed and agree except as marked - Patient Medical History Neurological History: Denies: Cerebrovascular Accident, Seizures, Dementia Cardiac History: Reports: Coronary Artery Disease, Atrial Fibrillation, Hypertension (not on medication.), Congestive Heart Failure, Hypercholesterolemia, Valvular Heart Disease. Denies: Heart Attack, Cardiac Catheterization Respiratory History: Reports: COPD, Pneumonia. Denies: Asthma, Pulmonary Embolism GI/ History: Reports: Urinary Tract Infection, Gastroesophageal Reflux Musculoskeletal History: Reports: Arthritis (right shoulder), Osteoarthritis Psychological History: Reports: Anxiety (bilat hip orif). Denies: Depression, Bipolar Disorder, Substance Use Disorder Surgical History: Reports: Other (Right total hip replacement bilat). Denies: Cholecystectomy, Cardiac Catheterization, Tonsillectomy/Adnoidectomy - Family Medical History Reports: Cardiac Disorders (Father: OK but lived a long time.), Respiratory Disorders. Denies: Hypertension, Diabetes, Cancer, Stroke - Social Medical History Smoking Status: Former smoker Social History: Denies: Substance Use Disorder <Raghav Lee - Last Filed: 07/27/16 18:52> EDM Review of Systems - Review of Systems ROS Negative Except as Marked: Yes All systems reviewed and were negative except as marked Constitutional: Loss of Appetite, Weakness Respiratory: Shortness of Breath Gastrointestinal: Nausea Neurological: Weakness <Raghav Lee - Last Filed: 07/27/16 18:52> - Physical Exam Last recorded Vital Signs: Last Vital Signs Temp Pulse 54 L 07/27/16 09:48 Resp 18 07/27/16 09:48 BP 105/51 L 07/27/16 09:48 Pulse Ox 99 07/27/16 09:48 Oxygen Pulse Oxygen Saturation 99 O2 Device Nasal Cannula Oxygen Flow Rate 2 Fraction of Inspired Oxygen ( FIO2) <Jaswinder Small - Last Filed: 07/27/16 10:39> - Physical Exam Constitutional: No apparent distress, Alert Oriented to: Time, Person, Place Last recorded Vital Signs: Last Vital Signs Temp Pulse 51 L 07/27/16 09:30 Resp 18 07/27/16 09:30 BP 107/52 L 07/27/16 09:30 Pulse Ox 94 07/27/16 09:30 Oxygen Pulse Oxygen Saturation 94 O2 Device Oxygen Flow Rate Fraction of Inspired Oxygen ( FIO2) - HEENT Head: Normal Eye Exam: negative: Conjunctival Injection, Scleral Icterus Oropharynx: negative: Drooling TMJ: Normal Nose: No Symptoms Reported Neck: Normal - Respiratory/Cardiovascular Respiratory: Normal - CTA Cardiovascular: Normal - GI Auscultation: Normal Palpation: Normal Tenderness: Non tender - Musculoskeletal Back: Normal Extremities: Normal - Integumentary Skin: Normal - Neurologic Mood Description: Normal Thought: Coherent Perception: Normal <Raghav Lee - Last Filed: 07/27/16 18:52> - Results 07/27/16 09:25 07/27/16 09:25 WBC 11.9 xk/uL (3.8-10.8) H 07/27/16 09:25 RBC 4.14 xM/uL (4.20-5.40) L 07/27/16 09:25 Hgb 12.3 g/dL (12.0-16.0) 07/27/16 09:25 Hct 37.0 % (36-47) 07/27/16 09:25 MCV 89 fL (81-99) 07/27/16 09:25 MCH 29.8 pg (27-32) 07/27/16 09:25 MCHC 33.4 g/dl (33-36) 07/27/16 09:25 RDW 13.4 % (11.5-14.5) 07/27/16 09:25 Plt Count 244 xk/uL (130-400) 07/27/16 09:25 MPV 7.6 fL (7.4-10.4) 07/27/16 09:25 Neut % (Auto) 71.2 % (45-76) 07/27/16 09:25 Lymph % (Auto) 19.5 % (17-44) 07/27/16 09:25 [place] % (Auto) 8.5 % (3-10) 07/27/16 09:25 Eos % (Auto) 0.1 % (0-5) 07/27/16 09:25 Baso % (Auto) 0.7 % (0-2) 07/27/16 09:25 Absolute Neuts (auto) 8.45 xk/uL (1.7-8.2) H 07/27/16 09:25 Absolute Lymphs (auto) 2.26 xk/uL (0.65-4.75) 07/27/16 09:25 PT 14.9 SEC (9.2-11.2) H 07/27/16 09:25 INR 1.4 07/27/16 09:25 APTT 33.3 SEC (22-35) 07/27/16 09:25 Puncture Site Right radial 07/27/16 10:10 pH 7.440 pH UNITS (7.35-7.45) 07/27/16 10:10 pCO2 40.0 mmHg (35-45) 07/27/16 10:10 pO2 50.0 mmHg (80-100) L 07/27/16 10:10 HCO3 27.2 MMOL/L (22-26) H 07/27/16 10:10 Total CO2 28.4 MMOL/L (23-27) H 07/27/16 10:10 Base Excess 2.8 (+/- 2) H 07/27/16 10:10 FiO2 % 21% 07/27/16 10:10 Specimen Drawn By Roude 07/27/16 10:10 Sodium 136 mEq/L (137-146) L 07/27/16 09:25 Potassium 4.0 mEq/L (3.5-5.1) 07/27/16 09:25 Chloride 98 mEq/L (98-107) 07/27/16 09:25 Carbon Dioxide 28 mMOL/L (22-33) 07/27/16 09:25 Anion Gap 14 mEq/L (8-16) 07/27/16 09:25 BUN 21 MG/DL (7-17) H 07/27/16 09:25 Creatinine 1.70 MG/DL (0.52-1.04) H 07/27/16 09:25 Estimated GFR (MDRD) 28 mL/min (>=60) L 07/27/16 09:25 Glucose 139 MG/DL (70-99) H 07/27/16 09:25 Calculated Osmolality 267 MOs/Kg (270-290) L 07/27/16 09:25 Lactic Acid 1.3 mEq/L (0.7-2.1) 07/27/16 09:25 Calcium 8.5 MG/DL (8.4-10.2) 07/27/16 09:25 Corrected Calcium 9.2 MG/DL (8.4-10.2) 07/27/16 09:25 Total Bilirubin 1.1 MG/DL (0.2-1.3) 07/27/16 09:25 AST 26 IU/L (14-36) 07/27/16 09:25 ALT 31 IU/L (9-52) 07/27/16 09:25 Alkaline Phosphatase 128 IU/L (55-165) 07/27/16 09:25 Troponin I 0.08 ng/mL (<.04) 07/27/16 09:25 Hvj-X-Afknkkzvjbt Pept 1650 pg/mL (0-1800) 07/27/16 09:25 Total Protein 7.0 G/DL (6.3-8.2) 07/27/16 09:25 Albumin 3.3 G/DL (3.5-5.0) L 07/27/16 09:25 Urine Color Yellow 07/27/16 09:29 Urine Clarity Sl hzy 07/27/16 09:29 Urine pH 6.0 (5.0-8.0) 07/27/16 09:29 Ur Specific [place] 1.005 (1.003-1.035) 07/27/16 09:29 Urine Protein 1+ (NEG/TRACE) H 07/27/16 09:29 Urine Glucose (UA) Neg (NEGATIVE) 07/27/16 09:29 Urine Ketones Neg (NEGATIVE) 07/27/16 09:29 Urine Occult Blood Neg (NEG/TRACE) 07/27/16 09:29 Urine Nitrite Neg (NEGATIVE) 07/27/16 09:29 Urine Bilirubin Neg (NEGATIVE) 07/27/16 09:29 Urine Urobilinogen 2 MG/DL (0-1) H 07/27/16 09:29 Ur Leukocyte Esterase 2+ (NEGATIVE) H 07/27/16 09:29 Urine RBC 0-2 (0-5) 07/27/16 09:29 Urine WBC 10-20 (0-5) H 07/27/16 09:29 Urine WBC Clumps Present (NONE) H 07/27/16 09:29 Amorphous Sediment Occ 07/27/16 09:29 Urine Bacteria 1+ (NEG/FEW) H 07/27/16 09:29 Digoxin 2.70 NG/ML (0.8-2.00) H* 07/27/16 09:25 Lab Results 07/27/16 07/27/16 07/27/16 10:10 09:29 09:25 WBC RBC Hgb Hct MCV MCH MCHC RDW Plt Count MPV Neut % (Auto) Lymph % (Auto) [place] % (Auto) Eos % (Auto) Baso % (Auto) Absolute Neuts (auto) Absolute Lymphs (auto) PT INR APTT Puncture Site Right radial pH 7.440 pCO2 40.0 pO2 50.0 L HCO3 27.2 H Total CO2 28.4 H Base Excess 2.8 H FiO2 % 21% Specimen Drawn By Roude Sodium Potassium Chloride Carbon Dioxide Anion Gap BUN Creatinine Estimated GFR (MDRD) Glucose Calculated Osmolality Lactic Acid Calcium Corrected Calcium Total Bilirubin AST ALT Alkaline Phosphatase Troponin I Vac-O-Xtppbzvmlqv Pept Total Protein Albumin Urine Color Yellow Urine Clarity Sl hzy Urine pH 6.0 Ur Specific [place] 1.005 Urine Protein 1+ H Urine Glucose (UA) Neg Urine Ketones Neg Urine Occult Blood Neg Urine Nitrite Neg Urine Bilirubin Neg Urine Urobilinogen 2 H Ur Leukocyte Esterase 2+ H Urine RBC 0-2 Urine WBC 10-20 H Urine WBC Clumps Present H Amorphous Sediment Occ Urine Bacteria 1+ H Digoxin 2.70 H* 07/27/16 07/27/16 07/27/16 09:25 09:25 09:25 WBC 11.9 H RBC 4.14 L Hgb 12.3 Hct 37.0 MCV 89 MCH 29.8 MCHC 33.4 RDW 13.4 Plt Count 244 MPV 7.6 Neut % (Auto) 71.2 Lymph % (Auto) 19.5 [place] % (Auto) 8.5 Eos % (Auto) 0.1 Baso % (Auto) 0.7 Absolute Neuts (auto) 8.45 H Absolute Lymphs (auto) 2.26 PT 14.9 H INR 1.4 APTT 33.3 Puncture Site pH pCO2 pO2 HCO3 Total CO2 Base Excess FiO2 % Specimen Drawn By Sodium Potassium Chloride Carbon Dioxide Anion Gap BUN Creatinine Estimated GFR (MDRD) Glucose Calculated Osmolality Lactic Acid 1.3 Calcium Corrected Calcium Total Bilirubin AST ALT Alkaline Phosphatase Troponin I Yix-D-Kyzmpwgqudx Pept Total Protein Albumin Urine Color Urine Clarity Urine pH Ur Specific [place] Urine Protein Urine Glucose (UA) Urine Ketones Urine Occult Blood Urine Nitrite Urine Bilirubin Urine Urobilinogen Ur Leukocyte Esterase Urine RBC Urine WBC Urine WBC Clumps Amorphous Sediment Urine Bacteria Digoxin 07/27/16 09:25 WBC RBC Hgb Hct MCV MCH MCHC RDW Plt Count MPV Neut % (Auto) Lymph % (Auto) [place] % (Auto) Eos % (Auto) Baso % (Auto) Absolute Neuts (auto) Absolute Lymphs (auto) PT INR APTT Puncture Site pH pCO2 pO2 HCO3 Total CO2 Base Excess FiO2 % Specimen Drawn By Sodium 136 L Potassium 4.0 Chloride 98 Carbon Dioxide 28 Anion Gap 14 BUN 21 H Creatinine 1.70 H Estimated GFR (MDRD) 28 L Glucose 139 H Calculated Osmolality 267 L Lactic Acid Calcium 8.5 Corrected Calcium 9.2 Total Bilirubin 1.1 AST 26 ALT 31 Alkaline Phosphatase 128 Troponin I 0.08 Hos-A-Uwgfoxdsbjv Pept 1650 Total Protein 7.0 Albumin 3.3 L Urine Color Urine Clarity Urine pH Ur Specific [place] Urine Protein Urine Glucose (UA) Urine Ketones Urine Occult Blood Urine Nitrite Urine Bilirubin Urine Urobilinogen Ur Leukocyte Esterase Urine RBC Urine WBC Urine WBC Clumps Amorphous Sediment Urine Bacteria Digoxin <Jaswinder Small - Last Filed: 07/27/16 10:39> - Results 07/27/16 09:25 07/27/16 09:25 - EKG EKG #1 EKG Time: 09:27 Rate: bpm: 59 Rhythm: SB, PVCs Block: 1 ST: Nonsp Comparison: 07/07/16 (AFLUTTER) - Diagnostic Imaging Chest Image interpreted by: Radiologist EXAM: PORTABLE CHEST 1 VIEW COMPARISON: 07/07/2016 FINDINGS: Cardiomegaly with vascular congestion. Small bilateral pleural effusions and bibasilar atelectasis. Cannot exclude mild interstitial edema. IMPRESSION: Cardiomegaly with bibasilar atelectasis and small effusions. Question mild interstitial edema. Electronically Signed By: Fernando Cosby M.D. On: 07/27/2016 09:55 <Raghav Lee - Last Filed: 07/27/16 18:52> <Jaswinder Small - Last Filed: 07/27/16 10:39> - Departure Disposition: Admit IP To This Hospital Decision to Admit Time: 10:49 (Dr You) Decision to admit date: 07/27/16 Decision to admit: from ED <Raghav Lee - Last Filed: 07/27/16 18:52> - Departure Condition: Stable Final Diagnosis: Hypoxia, Febrile illness UTI (urinary tract infection) Qualifiers: Urinary tract infection type: site unspecified Hematuria presence: without hematuria Qualified Code(s): N39.0 - Urinary tract infection, site not specified CHF (congestive heart failure) Qualifiers: Congestive heart failure type: unspecified congestive heart failure type Congestive heart failure chronicity: unspecified congestive heart failure chronicity Qualified Code(s): I50.9 - Heart failure, unspecified Dyspnea Qualifiers: Dyspnea type: shortness of breath Qualified Code(s): R06.02 - Shortness of breath
[2016-07-27 09:51] LABS: AUTOMATED BASOPHIL 0.7 % (0-2); AUTOMATED EOSINOPHIL 0.1 % (0-5); AUTOMATED LYMPH 19.5 % (17-44); AUTOMATED MONOCYTE 8.5 % (3-10); AUTOMATED NEUTROPHIL 71.2 % (45-76); MPV 7.6 fL (7.4-10.4)
--- NOTE | 2016-07-27 09:58 | DIRPT ---
CLINICAL DATA: Shortness of breath, low O2 sats EXAM: PORTABLE CHEST 1 VIEW COMPARISON: 07/07/2016 FINDINGS: Cardiomegaly with vascular congestion. Small bilateral pleural effusions and bibasilar atelectasis. Cannot exclude mild interstitial edema. IMPRESSION: Cardiomegaly with bibasilar atelectasis and small effusions. Question mild interstitial edema. Electronically Signed By: Fernando Cosby M.D. On: 07/27/2016 09:55
[2016-07-27 09:59] LABS: LEUKOCYTES/URINE 2+ (NEGATIVE); NITRITE/URINE NEG (NEGATIVE); RBC/URINE 0-2 (0-5); URINE OCCULT BLOOD NEG (NEG/TRACE)
[2016-07-27 10:01] LABS: PARTIAL THROMB. TIME 33.3 SEC (22-35); PT-INR 1.4
[2016-07-27 10:03] LABS: CALC CORRECTED 9.2 MG/DL (8.4-10.2); CALCIUM 8.5 MG/DL (8.4-10.2); CREATININE 1.7 MG/DL (0.52-1.04)
[2016-07-27 10:12] LABS: AMORPHOUS OCC
[2016-07-27 10:14] LABS: ALLEN'S TEST PASS; BEb 2.8 (+/- 2); TCO2 28.4 MMOL/L (23-27)
[2016-07-27 10:15] LABS: ABG Draw Site Right Radial
[2016-07-27] MEDS ORDERED: ALBUTEROL 0.083% 3 ML NEB NEB PRN (11:37)
[2016-07-27] MEDS ORDERED: ALPRAZOLAM 0.25 MG TAB PO PRN (11:41)
--- NOTE | 2016-07-27 11:51 | HISTPHYS ---
- Chief Complaint Fevers chills generalized weakness and confusion. - History of Present Illness 86 yowf brought to emergency room early on today by family members for evaluation of fevers chills worsening difficulties breathing confusion generalized weakness cloudy urine and episodes of diarrhea. Patient's son reports that over the past couple days mother has become profoundly weak and fatigued, he has initially noticed low-grade fevers subsequently she had a fever greater than 101 with chills and sweats. The notice increased work of breathing and cough productive of foamy sputum. Her urine has been cloudy with strong odor and patient episodes of diarrhea with frequent loose stools. Family reports periods of confusion and anxiety. Patient had episodes of nausea but no vomiting and no hematemesis. ED workup was undertaken; she was bradycardic, her discharge level was toxic at 2.7, UA was by pyuric. Medical consultation was phoned in for inpatient treatment. - Medical History Cardiac History: Reports: Coronary Artery Disease, Atrial Fibrillation, Hypertension (not on medication.), Congestive Heart Failure, Hypercholesterolemia, Valvular Heart Disease. Denies: Heart Attack, Cardiac Catheterization Respiratory History: Reports: COPD, Pneumonia. Denies: Asthma, Pulmonary Embolism GI/ History: Reports: Urinary Tract Infection, Gastroesophageal Reflux Musculoskeletal History: Reports: Arthritis (right shoulder), Osteoarthritis Neurological History: Reports: Dementia. Denies: Cerebrovascular Accident, Seizures Psychological History: Reports: Anxiety (bilat hip orif). Denies: Depression, Bipolar Disorder, Substance Use Disorder - Surgical History Reports: Other (Right total hip replacement bilat). Denies: Cholecystectomy, Cardiac Catheterization, Tonsillectomy/Adnoidectomy - Medictions/Allergies Allergies No Known Allergies Allergy (Verified 06/23/16 11:19) Current Medication List: Reviewed Home Medications Lisinopril 10 mg PO DAILY 10/13/15 Alprazolam [Xanax] 0.25 mg PO BID PRN 05/30/16 Ergocalciferol (Vitamin D2) [Vitamin D2 (ergocalciferol)] 50,000 units PO TUTH 05/30/16 Rivaroxaban [Xarelto] 20 mg PO DAILY #30 tablet 06/03/16 Digoxin [Lanoxin, Digitek] 0.125 mg PO DAILY #30 tab 06/28/16 Diltiazem HCl [Cardizem Cd] 240 mg PO QHS #30 cap.er.24h 06/28/16 Amlodipine Besylate [Norvasc] 5 mg PO HS 07/07/16 Metoprolol Succinate (XL) [Toprol Xl] 25 mg PO DAILY 07/08/16 Furosemide [Lasix] 40 mg PO DAILY@0800 #30 tablet 07/09/16 Atorvastatin Calcium [Lipitor] 20 mg PO DAILY 07/27/16 - Family History Reports: Cardiac Disorders (Father: [place] but lived a long time.), Respiratory Disorders. Denies: Hypertension, Diabetes, Cancer, Stroke - Social History Travel Outside of [place] in the Last 3 Months?: No Lives: With Family Smoking Status: Former smoker Social History: Denies: Substance Use Disorder - Review of Systems Constitutional: Chills, Fever, Diaphoresis, Fatigue, Loss of Appetite, Weakness Eyes: No Symptoms Reported Ears: No Symptoms Reported Nose: No Symptoms Reported Mouth: No Symptoms Reported Throat/Neck: No Symptoms Reported Respiratory: Cough, Shortness of Breath, Wheezing, Sputum, Dyspnea Cardiovascular: No Symptoms Reported Gastrointestinal: Nausea, Heartburn Genitourinary: Foul Ordor Neurological: Numbness, Weakness Musculoskeletal:: Arthritis, Muscle Pain Allergic/Immunologic: No Symptoms Reported Hematologic: No Symptoms Reported Endocrine: No Symptoms Reported Psychiatric: No Symptoms Reported - Physical Exam Vital Signs: Initial Vitals Pulse Rate 51 L 07/27/16 09:30 Respiratory Rate 18 07/27/16 09:30 Blood Pressure 107/52 L 07/27/16 09:30 Pulse Oxygen Saturation 94 07/27/16 09:30 Constitutional: Alert, Cachectic, Confused Oriented to: Person - HEENT Head: Normal Eye: Normal Oropharynx: Membranes Dry ENT EAC: Normal TMJ: Normal Nose: No Symptoms Reported Respiratory: Diminished, Rhonchi Cardiovascular: Normal, Bradycardia, Systolic murmur - GI Auscultation: Normal Palpation: Normal Tenderness: Non tender Rectal Exam: Deferred - Exam Deferred: Yes - Musculoskeletal Back: No Palpable Step-off Extremities: Cyanosis, Edema Spine: limited range of motion - Integumentary Skin: Normal, Warm, Dry Lymphatics: Normal - Neurologic Memory Impaired: Short-term Motor Function: Abnormal Cranial Nerve: Normal Cerebellar: Ataxia Mood Description: Normal, Anxious Thought: Coherent Perception: Normal - Focused CV Perfusion Exam Vital Signs: Last Vital Signs Temp Pulse 52 L 07/27/16 11:33 Resp 18 07/27/16 11:33 BP 93/45 L 07/27/16 11:33 Pulse Ox 96 07/27/16 11:33 - Diagnostic Findings Allergies No Known Allergies Allergy (Verified 06/23/16 11:19) Initial Vitals Pulse Rate 51 L 07/27/16 09:30 Respiratory Rate 18 07/27/16 09:30 Blood Pressure 107/52 L 07/27/16 09:30 Pulse Oxygen Saturation 94 07/27/16 09:30 07/27/16 09:25 07/27/16 09:25 Abnormal Lab Results 07/27/16 07/27/16 07/27/16 09:25 09:25 09:25 WBC 11.9 H RBC 4.14 L Absolute Neuts (auto) 8.45 H PT 14.9 H pO2 HCO3 Total CO2 Base Excess Sodium 136 L BUN 21 H Creatinine 1.70 H Estimated GFR (MDRD) 28 L Glucose 139 H Calculated Osmolality 267 L Albumin 3.3 L Urine Protein Urine Urobilinogen Ur Leukocyte Esterase Urine WBC Urine WBC Clumps Urine Bacteria Digoxin 07/27/16 07/27/16 07/27/16 09:25 09:29 10:10 WBC RBC Absolute Neuts (auto) PT pO2 50.0 L HCO3 27.2 H Total CO2 28.4 H Base Excess 2.8 H Sodium BUN Creatinine Estimated GFR (MDRD) Glucose Calculated Osmolality Albumin Urine Protein 1+ H Urine Urobilinogen 2 H Ur Leukocyte Esterase 2+ H Urine WBC 10-20 H Urine WBC Clumps Present H Urine Bacteria 1+ H Digoxin 2.70 H* Last Vital Signs Temp Pulse 52 L 07/27/16 11:33 Resp 18 07/27/16 11:33 BP 93/45 L 07/27/16 11:33 Pulse Ox 96 07/27/16 11:33 Patient Name: ZURI PATRICIA LOC: ED : 1930 AGE: 86 Order Date:07/27/16 Date of Service: Report # [id number] Ord Physician: Rahgav Lee Exam # [id number] Emergency Physician: Rafa Small MD Exam(s): [id number] RAD/DG CHEST PORTABLE CLINICAL DATA: Shortness of breath, low O2 sats EXAM: PORTABLE CHEST 1 VIEW COMPARISON: 07/07/2016 FINDINGS: Cardiomegaly with vascular congestion. Small bilateral pleural effusions and bibasilar atelectasis. Cannot exclude mild interstitial edema. IMPRESSION: Cardiomegaly with bibasilar atelectasis and small effusions. Question mild interstitial edema. Electronically Signed By: Fernando Cosby M.D. On: 07/27/2016 09:55 Electronically Signed By: Fernando Cosby MD Electronically Signed Date/Time: 958 Dictate Date/Time: 07/27/16 0955 Technologist: Rose Small Transcribed By: Kathleen Transcribed EKG; sinus abena , Last Vital Signs Temp Pulse 52 L 07/27/16 11:33 Resp 18 07/27/16 11:33 BP 93/45 L 07/27/16 11:33 Pulse Ox 96 07/27/16 11:33 - Assessment (1) Digoxin toxicity T46.0X1A - POISONING BY CARDI-STIM GLYCOS/DRUG SIMLAR ACT, ACC, INIT Acute Present on Admission: Yes Qualifiers: Encounter type: initial encounter Injury intent: I Hold digoxin and calcium channel sandra. Keep K more than 4 magnesium more than 2 continue telemetry monitoring.Consult Cardiology (2) Bradycardia R00.1 - BRADYCARDIA, UNSPECIFIED Acute Present on Admission: Yes Continue telemetry monitoring ,keep K more than 4 magnesium more than 2 (3) UTI (urinary tract infection) N39.0 - URINARY TRACT INFECTION, SITE NOT SPECIFIED Acute Present on Admission: Yes Qualifiers: Urinary tract infection type: site unspecified Hematuria presence: without hematuria Indwelling urinary catheter type: I Encounter type: E Qualified Code(s): N39.0 - Urinary tract infection, site not specified Continue IV Rocephin await urine cultures (4) Paroxysmal atrial fibrillation I48.0 - PAROXYSMAL ATRIAL FIBRILLATION Chronic Present on Admission: Yes Continue low-dose beta-sandra, continue Xarelto (5) Acute kidney injury N17.9 - ACUTE KIDNEY FAILURE, UNSPECIFIED Acute Present on Admission: Yes Gentle IV hydration will be provided will hold Lasix and lisinopril (6) HTN (hypertension) I10 - ESSENTIAL (PRIMARY) HYPERTENSION Acute Qualifiers: Hypertension type: essential hypertension Qualified Code(s): I10 - Essential (primary) hypertension Given low blood pressure will discontinue amlodipine and lisinopril (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.9 - EMPHYSEMA, UNSPECIFIED Chronic Present on Admission: Yes Qualifiers: Emphysema type: unspecified Qualified Code(s): J43.9 - Emphysema, unspecified Continue supplemental O2 nebulized bronchodilators continue incentive spirometer (8) GERD (gastroesophageal reflux disease) K21.9 - GASTRO-ESOPHAGEAL REFLUX DISEASE WITHOUT ESOPHAGITIS Chronic Present on Admission: Yes Qualifiers: Esophagitis presence: without esophagitis Qualified Code(s): K21.9 - Gastro -esophageal reflux disease without esophagitis Continue PPI Case Care Discussed with: Patient, Consultants, Family, Nursing Staff, Landing Signal Officer Total Time: 60 min . Critical Care: No Code: 54467
[2016-07-27] MEDS ORDERED: CEFTRIAXONE 1 GM in D5W 100 ML IV SCH (12:00)
[2016-07-27] MEDS ORDERED: NS 1,000 ML IV SCH (12:00)
--- NOTE | 2016-07-27 12:04 | PCM.CARDCO ---
Consultation Date: 07/27/16 Requesting Physician: Art [employer] Counselor: Raymundo Cheng Consult Reason: Dysrhythmia - History of Present Illness Patient is a 86 years old woman with cardiomyopathy latest estimation of ejection fraction was about 2 weeks ago she was fine to have ejection fraction 25-30% by echocardiogram. At that time she was also find to be in atrial flutter. Care history of paroxysmal atrial fibrillation, hypertension, history of hip replacement. Presented to the hospital with chief complaint of weak, fatigue, tiredness, nausea. She is a poor historian I spoke to her son in [facility] who was present with her in the emergency room. Denies having any chest pain tightness squeezing pressure burning chest. He said that usually she is able to walk somewhat with her walker but lately she was not able to do that. In the emergency room she was fine to be bradycardiac however blood pressure maintain at 100 systolic level, she was fine to have toxic level of digoxin. Admission is advised to manage those issues. At the moment of my interview laddillon lays in the bed seems to be comfortable. - Past Medical and Surgical History Cardiac History: Reports: Coronary Artery Disease, Atrial Fibrillation, Hypertension (not on medication.), Congestive Heart Failure, Hypercholesterolemia, Valvular Heart Disease. Denies: Heart Attack, Cardiac Catheterization Respiratory History: Reports: COPD, Pneumonia. Denies: Asthma, Pulmonary Embolism GI/ History: Reports: Urinary Tract Infection, Gastroesophageal Reflux Musculoskeletal History: Reports: Arthritis (right shoulder), Osteoarthritis Psychological History: Reports: Anxiety (bilat hip orif). Denies: Depression, Bipolar Disorder, Substance Use Disorder Neurological History: Denies: Cerebrovascular Accident, Seizures, Dementia Past Surgical History: Reports: Other (Right total hip replacement bilat). Denies: Cholecystectomy, Cardiac Catheterization, Tonsillectomy/Adnoidectomy Allergies No Known Allergies Allergy (Verified 06/23/16 11:19) Home Medications Lisinopril 10 mg PO DAILY 10/13/15 Alprazolam [Xanax] 0.25 mg PO BID PRN 05/30/16 Ergocalciferol (Vitamin D2) [Vitamin D2 (ergocalciferol)] 50,000 units PO TUTH 05/30/16 Rivaroxaban [Xarelto] 20 mg PO DAILY #30 tablet 06/03/16 Digoxin [Lanoxin, Digitek] 0.125 mg PO DAILY #30 tab 06/28/16 Diltiazem HCl [Cardizem Cd] 240 mg PO QHS #30 cap.er.24h 06/28/16 Amlodipine Besylate [Norvasc] 5 mg PO HS 07/07/16 Metoprolol Succinate (XL) [Toprol Xl] 25 mg PO DAILY 07/08/16 Furosemide [Lasix] 40 mg PO DAILY@0800 #30 tablet 07/09/16 Atorvastatin Calcium [Lipitor] 20 mg PO DAILY 07/27/16 - Social History Smoking Status: Former smoker Social History: Denies: Substance Use Disorder - Family History Reports: Cardiac Disorders (Father: [place] but lived a long time.), Respiratory Disorders. Denies: Hypertension, Diabetes, Cancer, Stroke - Review of Systems Constitutional: Loss of Appetite, Weakness - Physical Exam Constitutional: No apparent distress, Alert Oriented to: Time, Person, Place Exam: Last Vital Signs Temp Pulse 52 L 07/27/16 11:33 Resp 18 07/27/16 11:33 BP 93/45 L 07/27/16 11:33 Pulse Ox 96 07/27/16 11:33 - HEENT Head: Normal Eye: negative: Conjunctival Injection, Scleral Icterus Oropharynx: negative: Drooling TMJ: Normal Nose: No Symptoms Reported - Respiratory/Cardiovascular Respiratory: Normal - CTA - GI Auscultation: Normal Palpation: Normal Tenderness: Non tender - Musculoskeletal Back: Normal Extremities: Normal - Integumentary Skin: Normal - Neurologic Mood Description: Normal Thought: Coherent Perception: Normal - Other Exam Other Exam Findings: General Appearance: Well developed. Well nourished. In no acute distress. Elderly woman. Lungs: Chest was not overinflated. Clear to auscultation. Cardiovascular: Jugular Venous Distention: JVD not increased. Heart Rate And Rhythm: Normal. Heart Sounds: Normal. Distant, Murmurs: Systolic murmur grade 1-2/6 best heard left border of the sternum were heard. Carotid Arteries: Carotid pulses were normal. No bruit in the carotid artery. Edema: Not present. Lower extremities pulses normal (including femoral popliteal and dorsalis pedis) . Musculoskeletal System: General/bilateral: No cyanosis of the fingers. Neurological: Oriented to time, place, and person. Nails: No clubbing of the fingernails. - Lab Results Laboratory Tests 07/27/16 07/27/16 07/27/16 09:25 09:25 09:25 WBC 11.9 H RBC 4.14 L Hgb 12.3 Hct 37.0 MCV 89 MCH 29.8 MCHC 33.4 RDW 13.4 Plt Count 244 MPV 7.6 Neut % (Auto) 71.2 Lymph % (Auto) 19.5 Christian % (Auto) 8.5 Eos % (Auto) 0.1 Baso % (Auto) 0.7 Absolute Neuts (auto) 8.45 H Absolute Lymphs (auto) 2.26 PT 14.9 H INR 1.4 APTT 33.3 Puncture Site pH pCO2 pO2 HCO3 Total CO2 Base Excess FiO2 % Specimen Drawn By Sodium 136 L Potassium 4.0 Chloride 98 Carbon Dioxide 28 Anion Gap 14 BUN 21 H Creatinine 1.70 H Estimated GFR (MDRD) 28 L Glucose 139 H Calculated Osmolality 267 L Lactic Acid Calcium 8.5 Corrected Calcium 9.2 Total Bilirubin 1.1 AST 26 ALT 31 Alkaline Phosphatase 128 Troponin I 0.08 [id number] Pept 1650 Total Protein 7.0 Albumin 3.3 L Urine Color Urine Clarity Urine pH Ur Specific [place] Urine Protein Urine Glucose (UA) Urine Ketones Urine Occult Blood Urine Nitrite Urine Bilirubin Urine Urobilinogen Ur Leukocyte Esterase Urine RBC Urine WBC Urine WBC Clumps Amorphous Sediment Urine Bacteria Digoxin 07/27/16 07/27/16 07/27/16 09:25 09:25 09:29 WBC RBC Hgb Hct MCV MCH MCHC RDW Plt Count MPV Neut % (Auto) Lymph % (Auto) Christian % (Auto) Eos % (Auto) Baso % (Auto) Absolute Neuts (auto) Absolute Lymphs (auto) PT INR APTT Puncture Site pH pCO2 pO2 HCO3 Total CO2 Base Excess FiO2 % Specimen Drawn By Sodium Potassium Chloride Carbon Dioxide Anion Gap BUN Creatinine Estimated GFR (MDRD) Glucose Calculated Osmolality Lactic Acid 1.3 Calcium Corrected Calcium Total Bilirubin AST ALT Alkaline Phosphatase Troponin I [id number] Pept Total Protein Albumin Urine Color Yellow Urine Clarity Sl hzy Urine pH 6.0 Ur Specific [place] 1.005 Urine Protein 1+ H Urine Glucose (UA) Neg Urine Ketones Neg Urine Occult Blood Neg Urine Nitrite Neg Urine Bilirubin Neg Urine Urobilinogen 2 H Ur Leukocyte Esterase 2+ H Urine RBC 0-2 Urine WBC 10-20 H Urine WBC Clumps Present H Amorphous Sediment Occ Urine Bacteria 1+ H Digoxin 2.70 H* 07/27/16 10:10 WBC RBC Hgb Hct MCV MCH MCHC RDW Plt Count MPV Neut % (Auto) Lymph % (Auto) Christian % (Auto) Eos % (Auto) Baso % (Auto) Absolute Neuts (auto) Absolute Lymphs (auto) PT INR APTT Puncture Site Right radial pH 7.440 pCO2 40.0 pO2 50.0 L HCO3 27.2 H Total CO2 28.4 H Base Excess 2.8 H FiO2 % 21% Specimen Drawn By Roude Sodium Potassium Chloride Carbon Dioxide Anion Gap BUN Creatinine Estimated GFR (MDRD) Glucose Calculated Osmolality Lactic Acid Calcium Corrected Calcium Total Bilirubin AST ALT Alkaline Phosphatase Troponin I [id number] Pept Total Protein Albumin Urine Color Urine Clarity Urine pH Ur Specific [place] Urine Protein Urine Glucose (UA) Urine Ketones Urine Occult Blood Urine Nitrite Urine Bilirubin Urine Urobilinogen Ur Leukocyte Esterase Urine RBC Urine WBC Urine WBC Clumps Amorphous Sediment Urine Bacteria Digoxin - Assessment/Plan (1) Bradycardia R00.1 - BRADYCARDIA, UNSPECIFIED Acute Present on Admission: Yes Comment: Not critical, patient does have sinus rhythm with sinus bradycardia I think it is a results of multiple medication that she was getting. I will will hold those medication will watch her clinically. (2) Paroxysmal atrial fibrillation I48.0 - PAROXYSMAL ATRIAL FIBRILLATION Acute Comment: In sinus rhythm which will continue monitoring. She is anticoagulated with Xarelto however does need to be reduced to 15 mg daily secondary to her kidney dysfunction. (3) UTI (urinary tract infection) N39.0 - URINARY TRACT INFECTION, SITE NOT SPECIFIED Acute site unspecified without hematuria I E N39.0 - Urinary tract infection , site not specified Comment: That will be addressed by primary care physician. (4) Congestive heart failure I50.9 - HEART FAILURE, UNSPECIFIED Acute Comment: Appears to be relatively compensated. Will continue present medications. Will watch her clinically. (5) Digoxin toxicity T46.0X1A - POISONING BY CARDI-STIM GLYCOS/DRUG SIMLAR ACT, ACC, INIT Acute Present on Admission: Yes E I Comment: Does not meet criteria for the digibind, simply will hold digoxin and watch her clinically. Her symptoms especially nausea could be related to digoxin toxicity.
[2016-07-27] MEDS ORDERED: Vaccine Screening Complete SCH (13:00)
[2016-07-27] MEDS: Albuterol/Ipratropium Neb 3 ML NEB NEB SCH ×2 (14:33→19:51)
[2016-07-27] MEDS: RIVAROXABAN 10 MG TAB PO SCH (16:59)
[2016-07-27] MEDS: NS 1,000 ML IV SCH (17:24)
[2016-07-27] MEDS: PROBIOTIC BLEND TAB PO SCH (19:25)
[2016-07-27] MEDS: CEFTRIAXONE 2 GM in D5W 100 ML IV SCH (23:19)
[2016-07-28] MEDS: Albuterol/Ipratropium Neb 3 ML NEB NEB SCH ×4 (01:59→20:30)
[2016-07-28 05:11] LABS: BLOOD UREA NITROGEN 17 MG/DL (7-17); CALCIUM 7.8 MG/DL (8.4-10.2); CALCULATED OSMOLALITY 261 MOs/Kg (270-290); CHLORIDE 100 mEq/L (98-107); GLUCOSE 157 MG/DL (70-99); SODIUM LEVEL 133 mEq/L (137-146)
[2016-07-28] MEDS: NS 1,000 ML IV SCH ×3 (06:14→21:14)
[2016-07-28] MEDS: ATORVASTATIN 20 MG TAB PO SCH (07:47)
[2016-07-28] MEDS: METOPROLOL (TOPROL-XL) 25 MG TAB PO SCH (07:47)
[2016-07-28] MEDS: FUROSEMIDE 20 MG/2 ML VIAL IV SCH (07:48)
[2016-07-28] MEDS ORDERED: Non-Formulary Medication ITEM (Rivaroxaban [Xarelto] 15 MG) PO SCH (09:00)
[2016-07-28] MEDS ORDERED: Non-Formulary Medication ITEM (Rivaroxaban [Xarelto] 20 MG) PO SCH (09:00)
[2016-07-28] MEDS: PROBIOTIC BLEND TAB PO SCH ×2 (12:05→16:32)
[2016-07-28] MEDS: CEFTRIAXONE 2 GM in D5W 100 ML IV SCH (12:05)
--- NOTE | 2016-07-28 12:46 | GENMEDPROG ---
Chief Complaint: UTI (Enterococcus), ARF, atrial fib, digoxin toxicity (resolved) Notes Reviewed: Yes Events from last night noted and discussed with Clinical Staff Current Medication List: Reviewed Currently: Reports: PANTOJA. Denies: SOB, Nausea and Vomiting, Reflux Sx DVT Prophylaxis: Yes - Physical Examination Vital Signs and I&O: Last Vital Signs Temp 97.8 F 07/28/16 12:00 Pulse 69 07/28/16 12:00 Resp 18 07/28/16 12:00 BP 119/53 L 07/28/16 12:00 Pulse Ox 94 07/28/16 12:00 Oxygen Pulse Oxygen Saturation 94 O2 Device Nasal Cannula Oxygen Flow Rate 2 Fraction of Inspired Oxygen ( FIO2) Intake & Output 07/25/16 07/26/16 07/27/16 07/28/16 23:59 23:59 23:59 23:59 Intake Total 540 1220 Output Total 400 800 Balance 140 420 Patient's weight 51.528 kg 52.889 kg General: Alert, Oriented x3, Cooperative, Well appearing, Well nourished, Weakness HEENT: Normal, PERRLA, EOMI, Anicteric Sclera, Mucous membr. moist/pink Neck: Non-tender, Full range of motion, Normal Trachea alignment, Normal inspection, No Masses palpable Lymphatics: Normal Respiratory: Normal - CTA Cardiovascular: Regular rate and rhythm, Normal S1, Normal S2, Irregular GI: Normal bowel sounds, Soft, Non tender, No masses Extremities/Musculoskeletal: Normal pulses, DJD, FROM Skin: Warm,Dry and Intact, No rashes, No breakdown Neurological: Normal speech, Strength at 5/5 X4 ext, Normal tone Psych/Mental Status: Appropriate, Normal Affect, Cooperative Lab/DI/Studies Reviewed: Laboratory Tests 07/28/16 04:05 Sodium 133 L Potassium 3.0 L Chloride 100 Carbon Dioxide 26 Anion Gap 10 BUN 17 Creatinine 0.90 Estimated GFR (MDRD) 59 L Glucose 157 H Calculated Osmolality 261 L Calcium 7.8 L Magnesium 1.50 L - Assessment (1) UTI (urinary tract infection) Acute N39.0 - URINARY TRACT INFECTION, SITE NOT SPECIFIED Qualifiers: Urinary tract infection type: site unspecified Hematuria presence: without hematuria Qualified Code(s): N39.0 - Urinary tract infection, site not specified Comment/Plan: Appears to be Enterococcus- will change IV antibiotic to Unasyn IV. Patient is also on vanc. (2) Acute kidney injury Acute N17.9 - ACUTE KIDNEY FAILURE, UNSPECIFIED Comment/Plan: Gentle IV hydration will be provided, will hold Lasix and lisinopril (3) Digoxin toxicity Acute T46.0X1A - POISONING BY CARDI-STIM GLYCOS/DRUG SIMLAR ACT, ACC, INIT Qualifiers: Encounter type: initial encounter Comment/Plan: Hold digoxin and calcium channel sandra. Keep K more than 4 magnesium more than 2 continue telemetry monitoring.Consult Cardiology (4) CHF (congestive heart failure) Acute I50.9 - HEART FAILURE, UNSPECIFIED Qualifiers: Congestive heart failure type: unspecified congestive heart failure type Congestive heart failure chronicity: unspecified congestive heart failure chronicity Qualified Code(s): I50.9 - Heart failure, unspecified (5) Dyspnea Acute R06.00 - DYSPNEA, UNSPECIFIED Qualifiers: Dyspnea type: shortness of breath Qualified Code(s): R06.02 - Shortness of breath Comment/Plan: Multifactorial- inpart due to COPD exacerbation, partly due to atrial fibrillation and CHF. (6) Acute exacerbation of chronic obstructive airways disease Acute J44.1 - CHRONIC OBSTRUCTIVE PULMONARY DISEASE W (ACUTE) EXACERBATION Comment/Plan: Steadily better. Complete course of antibiotics and wean steroids. 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 Keep magnesium more than 2 and potassium more than 4. Continue anticoagulation w/ Xarelto
[2016-07-28] MEDS ORDERED: POTASSIUM CHLORIDE 20 MEQ/15 ML ORAL SOLN PO ONE (14:01)
[2016-07-28] MEDS: AMPICILLIN-SULBACTAM 3 GM in NS 100 ML IV SCH (16:32)
[2016-07-28] MEDS: RIVAROXABAN 10 MG TAB PO SCH (16:33)
[2016-07-28] MEDS: POTASSIUM CHLORIDE 20 MEQ TAB PO SCH (16:33)
[2016-07-29] MEDS: AMPICILLIN-SULBACTAM 3 GM in NS 100 ML IV SCH ×5 (00:02→23:54)
[2016-07-29] MEDS: Albuterol/Ipratropium Neb 3 ML NEB NEB SCH ×4 (02:02→20:04)
[2016-07-29 06:33] LABS: BLOOD UREA NITROGEN 12 MG/DL (7-17); CALCIUM 8.2 MG/DL (8.4-10.2); CALCULATED OSMOLALITY 267 MOs/Kg (270-290); CHLORIDE 105 mEq/L (98-107); GLUCOSE 115 MG/DL (70-99); SODIUM LEVEL 138 mEq/L (137-146)
[2016-07-29] MEDS: ATORVASTATIN 20 MG TAB PO SCH (08:36)
[2016-07-29] MEDS: ERGOCALCIFEROL (VITAMIN D2) 50000 UNITS CAP PO SCH (08:36)
[2016-07-29] MEDS: METOPROLOL (TOPROL-XL) 25 MG TAB PO SCH (08:36)
[2016-07-29] MEDS: PROBIOTIC BLEND TAB PO SCH ×2 (08:36→16:06)
[2016-07-29] MEDS: FUROSEMIDE 20 MG/2 ML VIAL IV SCH (08:36)
[2016-07-29] MEDS: POTASSIUM CHLORIDE 20 MEQ TAB PO SCH ×2 (08:37→16:06)
--- NOTE | 2016-07-29 15:37 | GENMEDPROG ---
Chief Complaint: UTI, MAGO, ATRIAL FIB, CHF Currently: Reports: PANTOJA. Denies: SOB, Nausea and Vomiting, Reflux Sx DVT Prophylaxis: Yes - Physical Examination Vital Signs and I&O: Last Vital Signs Temp 97.8 F 07/29/16 12:01 Pulse 128 H 07/29/16 12:21 Resp 20 07/29/16 12:01 BP 117/66 07/29/16 12:01 Pulse Ox 95 07/29/16 12:01 Oxygen Pulse Oxygen Saturation 95 O2 Device Nasal Cannula Oxygen Flow Rate 2 Fraction of Inspired Oxygen ( FIO2) Intake & Output 07/26/16 07/27/16 07/28/16 07/29/16 23:59 23:59 23:59 23:59 Intake Total 540 2598 937 Output Total 400 1450 1000 Balance 140 1148 -63 Patient's weight 51.528 kg 52.889 kg 52.163 kg General: Alert, Oriented x3, Cooperative, Well appearing, Well nourished, Weakness HEENT: Normal, PERRLA, EOMI, Anicteric Sclera, Mucous membr. moist/pink Neck: Non-tender, Full range of motion, Normal Trachea alignment, Normal inspection, No Masses palpable Lymphatics: Normal Respiratory: Normal - CTA Cardiovascular: Regular rate and rhythm, Normal S1, Normal S2, Irregular GI: Normal bowel sounds, Soft, Non tender, No masses Extremities/Musculoskeletal: Normal pulses, DJD, FROM Skin: Warm,Dry and Intact, No rashes, No breakdown Neurological: Normal speech, Strength at 5/5 X4 ext, Normal tone Psych/Mental Status: Appropriate, Normal Affect, Cooperative Lab/DI/Studies Reviewed: Microbiology 07/27/16 15:05 Stool Stool Consistency (TATI) - Final 07/27/16 15:05 Stool Clostridium difficile 027 (PCR) - Final NEGATIVE A single negative test for C. difficile indicates the likelihood that this organism is causing the diarrheal illness is extremely low. Therefore, repeat testing is strongly discouraged. If a new diarrheal illness occurs more than 7 days after the initial negative test, then sending a single repeat specimen may be indicated. ([facility] C. difficile/Epi by PCR: Performance characteristics have not been established for patients <2 years of age - per marine steam fitter limitations.) PRESUMPTIVE NEGATIVE (For in vitro diagnostic use only. 027-NAP1-BI results are NOT intended to guide treatment of C. difficile infections. (Infection Control Hosp Epidemiol 2010;31:431-455) ) 07/27/16 09:29 Urine - In/Out Catheter Urine Culture - Final Enterococcus faecalis 07/27/16 09:25 Blood Blood Culture - Final Enterococcus faecalis - Assessment (1) UTI (urinary tract infection) Acute N39.0 - URINARY TRACT INFECTION, SITE NOT SPECIFIED Qualifiers: Urinary tract infection type: site unspecified Hematuria presence: without hematuria Qualified Code(s): N39.0 - Urinary tract infection, site not specified Comment/Plan: Appears to be Enterococcus- will change IV antibiotic to Unasyn IV. STOP VANCOMYCIN (2) Acute kidney injury Acute N17.9 - ACUTE KIDNEY FAILURE, UNSPECIFIED Comment/Plan: Gentle IV hydration will be provided, will hold Lasix and lisinopril. Renal function has returned to normal. (3) CHF (congestive heart failure) Acute I50.9 - HEART FAILURE, UNSPECIFIED Qualifiers: Congestive heart failure type: unspecified congestive heart failure type Congestive heart failure chronicity: unspecified congestive heart failure chronicity Qualified Code(s): I50.9 - Heart failure, unspecified (4) Dyspnea Acute R06.00 - DYSPNEA, UNSPECIFIED Qualifiers: Dyspnea type: shortness of breath Qualified Code(s): R06.02 - Shortness of breath Comment/Plan: Multifactorial- inpart due to COPD exacerbation, partly due to atrial fibrillation and CHF. (5) Acute exacerbation of chronic obstructive airways disease Acute J44.1 - CHRONIC OBSTRUCTIVE PULMONARY DISEASE W (ACUTE) EXACERBATION Comment/Plan: Steadily better. Complete course of antibiotics and wean steroids. 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 Keep magnesium more than 2 and potassium more than 4. Continue anticoagulation w/ Xarelto (8) Digoxin toxicity Acute T46.0X1A - POISONING BY CARDI-STIM GLYCOS/DRUG SIMLAR ACT, ACC, INIT Qualifiers: Encounter type: initial encounter Comment/Plan: Hold digoxin and calcium channel sandra. Keep K more than 4 magnesium more than 2 continue telemetry monitoring.Consult Cardiology
[2016-07-29] MEDS: RIVAROXABAN 10 MG TAB PO SCH (16:06)
[2016-07-29] MEDS: METOPROLOL TARTRATE 50 MG TAB PO SCH (17:42)
[2016-07-30] MEDS ORDERED: METOPROLOL 5 MG/5 ML SDV IV ONE (01:30)
[2016-07-30] MEDS: Albuterol/Ipratropium Neb 3 ML NEB NEB SCH ×4 (02:27→19:49)
[2016-07-30] MEDS: AMPICILLIN-SULBACTAM 3 GM in NS 100 ML IV SCH ×4 (05:55→23:57)
[2016-07-30] MEDS: PROBIOTIC BLEND TAB PO SCH ×2 (07:46→16:42)
[2016-07-30] MEDS: METOPROLOL TARTRATE 50 MG TAB PO SCH ×3 (07:46→20:10)
[2016-07-30] MEDS: FUROSEMIDE 20 MG/2 ML VIAL IV SCH (07:46)
[2016-07-30] MEDS: POTASSIUM CHLORIDE 20 MEQ TAB PO SCH ×2 (07:46→16:42)
[2016-07-30] MEDS: ATORVASTATIN 20 MG TAB PO SCH (07:46)
[2016-07-30] MEDS: Magnesium Sulfate 2 gm/D5W 2 GM/50 ML RTU IV SCH ×2 (12:22→14:33)
--- NOTE | 2016-07-30 13:55 | GENMEDPROG ---
Subjective Note: Heart rate had been stable, today she is tachycardic. Digoxin and diltiazem have been on hold due to renal failure. Renal function now improved. Daughter reports that patient is very confused, also can't eat- tries to eat but chokes and feels too full. Gets nauseated but doesn't vomit. Hallucinating, seeing bugs on price, children outside windows and rainbows on ceiling. No agitation. Currently: Reports: PANTOJA. Denies: SOB, Nausea and Vomiting, Reflux Sx DVT Prophylaxis: Yes - Physical Examination Vital Signs and I&O: Last Vital Signs Temp 98.1 F 07/30/16 11:00 Pulse 139 H 07/30/16 13:31 Resp 20 07/30/16 11:00 BP 112/70 07/30/16 11:00 Pulse Ox 95 07/30/16 11:00 Oxygen Pulse Oxygen Saturation 95 O2 Device Nasal Cannula Oxygen Flow Rate 2 Fraction of Inspired Oxygen ( FIO2) Intake & Output 07/27/16 07/28/16 07/29/16 07/30/16 23:59 23:59 23:59 23:59 Intake Total 540 2598 1810 764 Output Total 400 1450 1000 1350 Balance 140 1148 810 -586 Patient's weight 51.528 kg 52.889 kg 52.163 kg 52.345 kg General: Alert, Oriented x3, Cooperative, Well appearing, Well nourished, Weakness HEENT: Normal, PERRLA, EOMI, Anicteric Sclera, Mucous membr. moist/pink Neck: Non-tender, Full range of motion, Normal Trachea alignment, Normal inspection, No Masses palpable Lymphatics: Normal Respiratory: Normal - CTA Cardiovascular: Normal S1, Normal S2, Irregular. negative: Regular rate and rhythm (tachycardic) GI: Normal bowel sounds, Soft, Non tender, No masses Extremities/Musculoskeletal: Normal pulses, DJD, FROM Skin: Warm,Dry and Intact, No rashes, No breakdown Neurological: Normal speech, Strength at 5/5 X4 ext, Normal tone Psych/Mental Status: Appropriate, Normal Affect, Cooperative - Assessment (1) Acute kidney injury Acute N17.9 - ACUTE KIDNEY FAILURE, UNSPECIFIED Comment/Plan: Gentle IV hydration will be provided, will hold Lasix and lisinopril. Renal function has returned to normal. Resume previous doses of digoxin and diltiazem. (2) CHF (congestive heart failure) Acute I50.9 - HEART FAILURE, UNSPECIFIED Qualifiers: Congestive heart failure type: combined Congestive heart failure chronicity : unspecified congestive heart failure chronicity Qualified Code(s): I50.40 - Unspecified combined systolic (congestive) and diastolic (congestive) heart failure Comment/Plan: patient with EF of 25-30%, now tachycardic having been off her digoxin for two days and off diltiazem x 2 days. Have increased metoprolol, and replacing magnesium. (3) Digoxin toxicity Acute T46.0X1A - POISONING BY CARDI-STIM GLYCOS/DRUG SIMLAR ACT, ACC, INIT Qualifiers: Encounter type: initial encounter Comment/Plan: Held digoxin and calcium channel sandra initially, will repeat digoxin level & resume these now due to tachyarrhythmias. Keep K more than 4, magnesium more than 2, continue telemetry monitoring. (4) UTI (urinary tract infection) Acute N39.0 - URINARY TRACT INFECTION, SITE NOT SPECIFIED Qualifiers: Urinary tract infection type: site unspecified Hematuria presence: without hematuria Qualified Code(s): N39.0 - Urinary tract infection, site not specified Comment/Plan: Appears to be Enterococcus- will change IV antibiotic to Unasyn IV. STOP VANCOMYCIN (5) Dyspnea Acute R06.00 - DYSPNEA, UNSPECIFIED Qualifiers: Dyspnea type: shortness of breath Qualified Code(s): R06.02 - Shortness of breath Comment/Plan: Multifactorial- in part due to COPD exacerbation, partly due to atrial fibrillation and CHF. (6) Acute exacerbation of chronic obstructive airways disease Acute J44.1 - CHRONIC OBSTRUCTIVE PULMONARY DISEASE W (ACUTE) EXACERBATION Comment/Plan: Steadily better. Complete course of antibiotics and wean steroids. 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 Keep magnesium more than 2 and potassium more than 4. Continue anticoagulation w/ Xarelto
[2016-07-30] MEDS: DIGOXIN 0.125 MG TAB PO SCH (15:16)
[2016-07-30] MEDS: DILTIAZEM 60 MG TAB PO SCH ×2 (16:42→23:58)
[2016-07-30] MEDS: RIVAROXABAN 10 MG TAB PO SCH (16:42)
[2016-07-30] MEDS ORDERED: Pharmacy Review for Metformin - IV Contrast Given SCH (18:00)
[2016-07-30] MEDS ORDERED: DILTIAZEM 60 MG TAB PO SCH (18:00)
--- NOTE | 2016-07-30 19:11 | DIRPT ---
CLINICAL DATA: Altered mental status with hallucinations. EXAM: CT HEAD WITHOUT CONTRAST TECHNIQUE: Contiguous axial images were obtained from the base of the skull through the vertex without intravenous contrast. COMPARISON: None. FINDINGS: There is no evidence for acute hemorrhage, hydrocephalus, mass lesion, or abnormal extra-axial fluid collection. No definite CT evidence for acute infarction. Diffuse loss of parenchymal volume is consistent with atrophy. Patchy low attenuation in the deep hemispheric and periventricular white matter is nonspecific, but likely reflects chronic microvascular ischemic demyelination. The visualized paranasal sinuses and mastoid air cells are clear. IMPRESSION: No acute intracranial abnormality. 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 Electronically Signed By: Eduardo Santana M.D. On: 07/30/2016 19:08
[2016-07-30] MEDS ORDERED: HALOPERIDOL 5 MG/ML VIAL IM ONE (20:50)
[2016-07-30] MEDS ORDERED: HALOPERIDOL 5 MG/ML VIAL ONE (20:51)
[2016-07-30 21:57] LABS: BLOOD UREA NITROGEN 10 MG/DL (7-17); CALCULATED OSMOLALITY 265 MOs/Kg (270-290); CHLORIDE 102 mEq/L (98-107); GLUCOSE 129 mg/dL (70-99); SODIUM LEVEL 137 mEq/L (137-146)
[2016-07-30 22:12] LABS: MPV 8.2 fL (7.4-10.4)
[2016-07-31] MEDS: Albuterol/Ipratropium Neb 3 ML NEB NEB SCH ×4 (01:34→20:27)
[2016-07-31] MEDS: DILTIAZEM 60 MG TAB PO SCH ×3 (05:00→17:57)
[2016-07-31] MEDS: METOPROLOL TARTRATE 50 MG TAB PO SCH ×3 (05:00→20:18)
[2016-07-31] MEDS: AMPICILLIN-SULBACTAM 3 GM in NS 100 ML IV SCH ×3 (05:00→17:59)
[2016-07-31 06:30] LABS: MPV 8.1 fL (7.4-10.4)
[2016-07-31 06:53] LABS: BLOOD UREA NITROGEN 8 MG/DL (7-17); CALCIUM 8.3 MG/DL (8.4-10.2); CALCULATED OSMOLALITY 266 MOs/Kg (270-290); CHLORIDE 104 mEq/L (98-107); GLUCOSE 99 mg/dL (70-99); SODIUM LEVEL 139 mEq/L (137-146)
[2016-07-31] MEDS: POTASSIUM CHLORIDE 20 MEQ TAB PO SCH ×2 (08:54→17:59)
[2016-07-31] MEDS: ATORVASTATIN 20 MG TAB PO SCH (08:56)
[2016-07-31] MEDS: ERGOCALCIFEROL (VITAMIN D2) 50000 UNITS CAP PO SCH (08:57)
[2016-07-31] MEDS: DIGOXIN 0.125 MG TAB PO SCH (09:14)
[2016-07-31] MEDS: FUROSEMIDE 20 MG/2 ML VIAL IV SCH (11:05)
[2016-07-31] MEDS: PROBIOTIC BLEND TAB PO SCH ×2 (13:10→17:58)
--- NOTE | 2016-07-31 13:46 | GENMEDPROG ---
Currently: Reports: PANTOJA. Denies: SOB, Nausea and Vomiting, Reflux Sx DVT Prophylaxis: Yes - Physical Examination Vital Signs and I&O: Last Vital Signs Temp 97.9 F 07/31/16 08:00 Pulse 72 07/31/16 11:43 Resp 18 07/31/16 11:43 BP 121/58 L 07/31/16 11:43 Pulse Ox 94 07/31/16 11:43 Oxygen Pulse Oxygen Saturation 94 O2 Device Room Air Oxygen Flow Rate 2 Fraction of Inspired Oxygen ( FIO2) Intake & Output 07/28/16 07/29/16 07/30/16 07/31/16 23:59 23:59 23:59 23:59 Intake Total 2598 1810 1404 360 Output Total 1450 1000 2750 500 Balance 1148 810 -1346 -140 Patient's weight 52.889 kg 52.163 kg 52.345 kg 52.362 kg General: Alert, Oriented x3, Cooperative, Well appearing, Well nourished, Weakness HEENT: Normal, PERRLA, EOMI, Anicteric Sclera, Mucous membr. moist/pink Neck: Non-tender, Full range of motion, Normal Trachea alignment, Normal inspection, No Masses palpable Lymphatics: Normal Respiratory: Normal - CTA Cardiovascular: Normal S1, Normal S2, Irregular. negative: Regular rate and rhythm (tachycardic) GI: Normal bowel sounds, Soft, Non tender, No masses Extremities/Musculoskeletal: Normal pulses, DJD, FROM Skin: Warm,Dry and Intact, No rashes, No breakdown Neurological: Normal speech, Strength at 5/5 X4 ext, Normal tone Psych/Mental Status: Appropriate, Normal Affect, Cooperative Lab/DI/Studies Reviewed: HEAD CT: IMPRESSION: No acute intracranial abnormality. 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 Electronically Signed By: Eduardo Santana M.D. On: 07/30/2016 19:08 Microbiology 07/27/16 10:05 Blood Blood Culture - Final Enterococcus faecalis- SENSITIVE TO PCN Laboratory Tests 07/31/16 07/31/16 05:25 05:25 WBC 9.5 Hgb 11.3 L Hct 33.7 L Plt Count 252 Sodium 139 Potassium 4.2 Chloride 104 Carbon Dioxide 28 Anion Gap 11 BUN 8 Creatinine 0.70 Estimated GFR (MDRD) > 60 Glucose 99 Calculated Osmolality 266 L Calcium 8.3 L Magnesium 2.30 Slx-H-Awciojwyolm Pept 6120 H Digoxin 0.70 L - Assessment (1) Acute kidney injury Acute N17.9 - ACUTE KIDNEY FAILURE, UNSPECIFIED Comment/Plan: Gentle IV hydration will be provided, will hold Lasix and lisinopril. Renal function has returned to normal. Resume previous doses of digoxin and diltiazem. (2) CHF (congestive heart failure) Acute I50.9 - HEART FAILURE, UNSPECIFIED Qualifiers: Congestive heart failure type: combined Congestive heart failure chronicity : unspecified congestive heart failure chronicity Qualified Code(s): I50.40 - Unspecified combined systolic (congestive) and diastolic (congestive) heart failure Comment/Plan: patient with EF of 25-30%, tachycardia resolved and heart rate controlled again. Have increased metoprolol, and replaced magnesium, which is normal now. (3) Digoxin toxicity Acute T46.0X1A - POISONING BY CARDI-STIM GLYCOS/DRUG SIMLAR ACT, ACC, INIT Qualifiers: Encounter type: initial encounter Comment/Plan: Held digoxin and calcium channel sandra initially, will repeat digoxin level & resume these now due to tachyarrhythmias. Keep K more than 4, magnesium more than 2, continue telemetry monitoring. Will stop this drug as family is reporting patient hallucinating and continued use with diltiazem can lead to this interaction and digoxin toxicity. (4) UTI (urinary tract infection) Acute N39.0 - URINARY TRACT INFECTION, SITE NOT SPECIFIED Qualifiers: Urinary tract infection type: site unspecified Hematuria presence: without hematuria Qualified Code(s): N39.0 - Urinary tract infection, site not specified Comment/Plan: Appears to be Enterococcus- will change IV antibiotic to Unasyn IV. STOP VANCOMYCIN (5) Dyspnea Acute R06.00 - DYSPNEA, UNSPECIFIED Qualifiers: Dyspnea type: shortness of breath Qualified Code(s): R06.02 - Shortness of breath Comment/Plan: Multifactorial- in part due to COPD exacerbation, partly due to atrial fibrillation and CHF. (6) Acute exacerbation of chronic obstructive airways disease Acute J44.1 - CHRONIC OBSTRUCTIVE PULMONARY DISEASE W (ACUTE) EXACERBATION Comment/Plan: Steadily better. Complete course of antibiotics and wean steroids. 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 Keep magnesium more than 2 and potassium more than 4. Continue anticoagulation w/ Xarelto Disposition Plan: Anticipate discharge in AM Case Care Discussed with: Patient, Family, Nursing Staff, Resource Management Education/Counseling Given To: Patient, Family Member Education/Counseling Given Regarding: Diagnosis, Treatment, Prognosis Critical Care: No Couseling Time (>50% in counseling/coordination): Yes Code: 43695 (12+)
[2016-07-31] MEDS: RIVAROXABAN 10 MG TAB PO SCH (17:59)
[2016-07-31] MEDS: HALOPERIDOL 5 MG/ML VIAL IM PRN (21:31)
[2016-07-31] MEDS ORDERED: LORAZEPAM 2 MG/ML VIAL ONE (22:20)
[2016-07-31] MEDS ORDERED: LORAZEPAM 2 MG/ML VIAL IV ONE (22:26)
[2016-08-01] MEDS: AMPICILLIN-SULBACTAM 3 GM in NS 100 ML IV SCH ×4 (00:12→17:48)
[2016-08-01] MEDS: DILTIAZEM 60 MG TAB PO SCH ×3 (00:53→08:16)
[2016-08-01] MEDS: Albuterol/Ipratropium Neb 3 ML NEB NEB SCH ×4 (02:32→21:02)
[2016-08-01] MEDS: HALOPERIDOL 5 MG/ML VIAL IM PRN (04:15)
[2016-08-01] MEDS: METOPROLOL TARTRATE 50 MG TAB PO SCH ×3 (04:51→21:28)
--- NOTE | 2016-08-01 07:46 | PCM.DCS92 ---
- Final/Secondary Discharge Diagnosis (1) Acute kidney injury Acute N17.9 - ACUTE KIDNEY FAILURE, UNSPECIFIED Present on Admission: Yes Comment: Gentle IV hydration was be provided, held Lasix initially, then gradually re-introduced it and stopped lisinopril. Renal function has returned to normal. Reduced previous dose of diltiazem and discontinued digoxin due to hallucinations. (2) CHF (congestive heart failure) Acute I50.9 - HEART FAILURE, UNSPECIFIED Present on Admission: Yes combined unspecified congestive heart failure chronicity I50.40 - Unspecified combined systolic (congestive) and diastolic (congestive) heart failure Comment: This patient is severely impaired with EF of 25-30%, has atrial fibrillation with tachycardia, now resolved and heart rate controlled again. Have increased metoprolol, and replaced potassium & magnesium, which are normal now. (3) Digoxin toxicity Acute T46.0X1A - POISONING BY CARDI-STIM GLYCOS/DRUG SIMLAR ACT, ACC, INIT Present on Admission: Yes initial encounter Comment: She had digoxin toxicity upon presentation to the hospital. Held digoxin and calcium channel sandra initially, will repeated digoxin level to verify toxicity had resolved. Resumed initially due to tachyarrhythmias. Maintained K more than 4, magnesium more than 2, & continued telemetry monitoring. Will stop this drug as family is reporting patient hallucinating and continued use with diltiazem can lead to this interaction and digoxin toxicity. (4) UTI (urinary tract infection) Acute N39.0 - URINARY TRACT INFECTION, SITE NOT SPECIFIED Present on Admission: Yes site unspecified without hematuria N39.0 - Urinary tract infection, site not specified Comment: Appears to be Enterococcus UTI- will change IV antibiotic to Unasyn IV. STOP VANCOMYCIN (5) Dyspnea Acute R06.00 - DYSPNEA, UNSPECIFIED shortness of breath R06.02 - Shortness of breath Comment: Multifactorial- in part due to COPD exacerbation, partly due to atrial fibrillation and CHF. (6) Acute exacerbation of chronic obstructive airways disease Acute J44.1 - CHRONIC OBSTRUCTIVE PULMONARY DISEASE W (ACUTE) EXACERBATION Comment: Steadily better. Complete course of antibiotics and wean steroids. (7) COPD (chronic obstructive pulmonary disease) with emphysema Chronic J43.9 - EMPHYSEMA, UNSPECIFIED Present on Admission: Yes unspecified J43.9 - Emphysema, unspecified Comment: Continue supplemental O2, nebulized bronchodilators, continue incentive spirometer (8) Atrial fibrillation with RVR Chronic I48.91 - UNSPECIFIED ATRIAL FIBRILLATION Comment: Continue home meds. Keep magnesium more than 2 and potassium more than 4. Continue anticoagulation w/ Xarelto Discharge Condition: Stable Physician Follow up/Referrals: Jill Wade MD [Staff Physician] - One Week Home Medications / New Prescriptions: No Action Lisinopril 10 mg PO DAILY Ergocalciferol (Vitamin D2) [Vitamin D2 (ergocalciferol)] 50,000 units PO TUTH Alprazolam [Xanax] 0.25 mg PO BID PRN PRN Reason: Anxiety Rivaroxaban [Xarelto] 20 mg PO DAILY #30 tablet Digoxin [Lanoxin, Digitek] 0.125 mg PO DAILY #30 tab Diltiazem HCl [Cardizem Cd] 240 mg PO QHS #30 cap.er.24h Amlodipine Besylate [Norvasc] 5 mg PO HS Metoprolol Succinate (XL) [Toprol Xl] 25 mg PO DAILY Furosemide [Lasix] 40 mg PO DAILY@0800 #30 tablet Atorvastatin Calcium [Lipitor] 20 mg PO DAILY O2 Device: Room Air - DC Summary Notes Hospital Course Note:: Discharge summary on patient named ZURI PATRICIA admitted to [facility] on 07/27/16 by Art Robertson MD. Date of discharge is []. - Physical Exam Vital Signs: Last Vital Signs Temp 98.2 F 08/01/16 04:21 Pulse 78 08/01/16 06:00 Resp 20 08/01/16 04:21 BP 139/77 08/01/16 04:21 Pulse Ox 96 08/01/16 04:21 Oxygen Pulse Oxygen Saturation 96 O2 Device Room Air Oxygen Flow Rate 2 Fraction of Inspired Oxygen ( FIO2) Constitutional: No apparent distress, Alert Oriented to: Time, Person, Place - HEENT Head: Normal Eye: negative: Conjunctival Injection, Scleral Icterus Oropharynx: negative: Drooling TMJ: Normal Nose: No Symptoms Reported - Respiratory/Cardiovascular Respiratory: Normal - CTA Cardiovascular: Normal - GI Auscultation: Normal Palpation: Normal Tenderness: Non tender Rectal Exam: Deferred - Musculoskeletal Back: Normal Extremities: Normal - Integumentary Skin: Warm, Dry Lymphatics: Normal - Neurologic Memory Impaired: Short-term Motor Function: Normal Cranial Nerve: Normal Cerebellar: Normal Mood Description: Normal Thought: Coherent, Rambling Conversation Perception: Normal, Visual Hallucinations (occasional) - Other Exam Other Exam Findings: ECHO: CONCLUSIONS 1. moderate concentric left ventricular hypertrophy with anterior and lateral akinesis, markedly depressed LVEF 25-30% in rapid atrial flutter 2. aortic sclerosis with mild aortic regurgitation 3. mitral annular calcium and leaflet thickening with 2+ moderate multijet regurgitation and marked left atrial dilatation 4. mildly depressed RV function, with mild TR, borderline/ mild elevation of pulm artery pressure. Electronically Signed By: Pito Lindquist MD-- Electronically Signed On: 13:27:03 Copy to: Raul Alvarado Jr, DO~ 06/01/16 [id number]
--- NOTE | 2016-08-01 08:06 | GENMEDPROG ---
Chief Complaint: sepsis, UTI, atrial fib w/ RVR, cardiomyopathy, digoxin toxicity Currently: Reports: PANTOJA. Denies: SOB, Nausea and Vomiting, Reflux Sx DVT Prophylaxis: Yes - Physical Examination Vital Signs and I&O: Last Vital Signs Temp 98.2 F 08/01/16 07:45 Pulse 118 08/01/16 07:45 Resp 20 08/01/16 07:45 BP 99/74 08/01/16 07:45 Pulse Ox 96 08/01/16 07:45 Oxygen Pulse Oxygen Saturation 96 O2 Device Room Air Oxygen Flow Rate 2 Fraction of Inspired Oxygen ( FIO2) Intake & Output 07/29/16 07/30/16 07/31/16 08/01/16 23:59 23:59 23:59 23:59 Intake Total 1810 1404 1184 300 Output Total 1000 2750 2140 900 Balance 810 -1346 -956 -600 Patient's weight 52.163 kg 52.345 kg 52.362 kg 52.22 kg General: Mild distress, Weakness, Other (confused). negative: Alert HEENT: Normal, PERRLA, EOMI, Anicteric Sclera, Mucous membr. moist/pink Neck: Full range of motion, Normal Trachea alignment, Normal inspection, No Masses palpable, Supple Lymphatics: Normal Respiratory: Normal - CTA Cardiovascular: Regular rate and rhythm, Normal S1, Normal S2, Murmurs, Good Pedal Pulses. negative: LE Edema GI: Normal bowel sounds, Soft, Non tender, No masses Extremities/Musculoskeletal: Normal pulses, Edema, DJD, FROM Skin: Warm,Dry and Intact, No rashes Neurological: Normal speech, Strength at 5/5 X4 ext, Normal tone, Cranial nerves 3-12 NL Psych/Mental Status: Agitated, Confused, Disoriented Lab/DI/Studies Reviewed: Microbiology 07/27/16 10:05 Blood Blood Culture - Final Enterococcus faecalis 07/27/16 09:29 Urine - In/Out Catheter Urine Culture - Final Enterococcus faecalis 07/27/16 09:25 Blood Blood Culture - Final Enterococcus faecalis Laboratory Tests 07/31/16 07/31/16 07/31/16 05:25 05:25 16:53 WBC 9.5 Hgb 11.3 L Hct 33.7 L Plt Count 252 Sodium 139 Potassium 4.2 Chloride 104 Carbon Dioxide 28 Anion Gap 11 BUN 8 Creatinine 0.70 Estimated GFR (MDRD) > 60 Glucose 99 POC Capillary Glucose 122 H Calculated Osmolality 266 L Calcium 8.3 L Magnesium 2.30 [id number] Pept 6120 H Digoxin 0.70 L - Assessment (1) Sepsis Acute A41.9 - SEPSIS, UNSPECIFIED ORGANISM Qualifiers: Sepsis type: Streptococcus, other Qualified Code(s): A40.8 - Other streptococcal sepsis Comment/Plan: Patient with Enterococcus in her blood cultures. This may be contributing to her recurrent tachyarrhythmias. She also has valvular heart disease already. Will review with cardiology and repeat blood cultures. Cultures were drawn on 07/27/16 and she did recieve 3L of IVF at that time, so adequate treatment was given although diagnosis was not made until later. Has been on IV antibiotics for 5 days. Needs at least 2 more days, if repeat blood cultures are negative. Continue IV Unasyn. (2) Acute kidney injury Acute N17.9 - ACUTE KIDNEY FAILURE, UNSPECIFIED Comment/Plan: Gentle IV hydration was be provided, held Lasix initially, then gradually re-introduced it and stopped lisinopril. Renal function has returned to normal. Reduced previous dose of diltiazem and discontinued digoxin due to hallucinations. 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 Have increased metoprolol, and replaced potassium & magnesium, which are normal now. (4) Digoxin toxicity Acute T46.0X1A - POISONING BY CARDI-STIM GLYCOS/DRUG SIMLAR ACT, ACC, INIT Qualifiers: Encounter type: initial encounter Comment/Plan: She had digoxin toxicity upon presentation to the hospital. Held digoxin and calcium channel sandra initially, will repeated digoxin level to verify toxicity had resolved. Resumed initially due to tachyarrhythmias. Maintained K more than 4, magnesium more than 2, & continued telemetry monitoring. Will stop this drug as family is reporting patient hallucinating and continued use with diltiazem can lead to this interaction and digoxin toxicity. (5) UTI (urinary tract infection) Acute N39.0 - URINARY TRACT INFECTION, SITE NOT SPECIFIED Qualifiers: Urinary tract infection type: site unspecified Hematuria presence: without hematuria Qualified Code(s): N39.0 - Urinary tract infection, site not specified Comment/Plan: Appears to be Enterococcus UTI- changed IV antibiotic to Unasyn IV. STOP VANCOMYCIN (6) Dyspnea Acute R06.00 - DYSPNEA, UNSPECIFIED Qualifiers: Dyspnea type: shortness of breath Qualified Code(s): R06.02 - Shortness of breath Comment/Plan: Multifactorial- in part due to COPD exacerbation, partly due to atrial fibrillation and CHF. (7) Acute exacerbation of chronic obstructive airways disease Acute J44.1 - CHRONIC OBSTRUCTIVE PULMONARY DISEASE W (ACUTE) EXACERBATION Comment/Plan: Steadily better. Complete course of antibiotics and wean steroids. 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 Keep magnesium more than 2 and potassium more than 4. Continue anticoagulation w/ Xarelto
[2016-08-01] MEDS: ATORVASTATIN 20 MG TAB PO SCH (08:18)
[2016-08-01] MEDS: POTASSIUM CHLORIDE 20 MEQ TAB PO SCH ×2 (08:18→17:45)
[2016-08-01] MEDS: DILTIAZEM HCL 120 MG CAPSULE.CR PO SCH (11:24)
[2016-08-01] MEDS: FUROSEMIDE 40 MG TAB PO SCH (11:24)
[2016-08-01] MEDS: PROBIOTIC BLEND TAB PO SCH ×2 (11:25→17:45)
[2016-08-01] MEDS: RIVAROXABAN 10 MG TAB PO SCH (17:40)
[2016-08-02] MEDS: AMPICILLIN-SULBACTAM 3 GM in NS 100 ML IV SCH ×4 (01:26→16:43)
[2016-08-02] MEDS: Albuterol/Ipratropium Neb 3 ML NEB NEB SCH ×4 (02:11→20:49)
[2016-08-02 03:53] LABS: AUTOMATED BASOPHIL 0.8 % (0-2); AUTOMATED EOSINOPHIL 2.1 % (0-5); AUTOMATED LYMPH 36.5 % (17-44); AUTOMATED MONOCYTE 8.2 % (3-10); AUTOMATED NEUTROPHIL 52.4 % (45-76)
[2016-08-02 04:10] LABS: BLOOD UREA NITROGEN 10 MG/DL (7-17); CALCIUM 8.2 MG/DL (8.4-10.2); CALCULATED OSMOLALITY 268 MOs/Kg (270-290); CHLORIDE 106 mEq/L (98-107); GLUCOSE 109 mg/dL (70-99); SODIUM LEVEL 139 mEq/L (137-146)
[2016-08-02] MEDS: METOPROLOL TARTRATE 50 MG TAB PO SCH ×3 (05:38→21:25)
[2016-08-02] MEDS: FUROSEMIDE 40 MG TAB PO SCH (07:42)
[2016-08-02] MEDS: POTASSIUM CHLORIDE 20 MEQ TAB PO SCH ×2 (07:42→16:44)
[2016-08-02] MEDS: DILTIAZEM HCL 120 MG CAPSULE.CR PO SCH (07:42)
[2016-08-02] MEDS: PROBIOTIC BLEND TAB PO SCH ×2 (07:43→16:44)
[2016-08-02] MEDS: ATORVASTATIN 20 MG TAB PO SCH (07:43)
--- NOTE | 2016-08-02 14:53 | GENMEDPROG ---
Currently: Reports: PANTOJA. Denies: SOB, Nausea and Vomiting, Reflux Sx DVT Prophylaxis: Yes - Physical Examination Vital Signs and I&O: Last Vital Signs Temp 97.9 F 08/02/16 11:57 Pulse 82 08/02/16 13:52 Resp 18 08/02/16 11:57 BP 135/64 08/02/16 11:57 Pulse Ox 97 08/02/16 11:57 Oxygen Pulse Oxygen Saturation 97 O2 Device Room Air Oxygen Flow Rate 2 Fraction of Inspired Oxygen ( FIO2) Intake & Output 07/30/16 07/31/16 08/01/16 08/02/16 23:59 23:59 23:59 23:59 Intake Total 1404 1184 420 958 Output Total 2750 2140 1550 1750 Balance -2516 -146 -1130 -262 Patient's weight 52.345 kg 52.362 kg 52.22 kg 51.664 kg General: Mild distress, Weakness, Other (confused). negative: Alert HEENT: Normal, PERRLA, EOMI, Anicteric Sclera, Mucous membr. moist/pink Neck: Full range of motion, Normal Trachea alignment, Normal inspection, No Masses palpable, Supple Lymphatics: Normal Respiratory: Normal - CTA Cardiovascular: Regular rate and rhythm, Normal S1, Normal S2, Murmurs, Good Pedal Pulses. negative: LE Edema GI: Normal bowel sounds, Soft, Non tender, No masses Extremities/Musculoskeletal: Normal pulses, Edema, DJD, FROM Skin: Warm,Dry and Intact, No rashes Neurological: Normal speech, Strength at 5/5 X4 ext, Normal tone, Cranial nerves 3-12 NL Psych/Mental Status: Agitated, Confused, Disoriented Lab/DI/Studies Reviewed: Selected Entries 08/01/16 04:21 Temperature 98.2 F Pulse Rate 115 Respiratory 20 Rate Blood Pressure 97 Mean Blood Pressure 139/77 Pulse Oxygen 96 Saturation Laboratory Tests 08/02/16 08/02/16 08/02/16 03:25 03:25 03:25 WBC 8.5 Hgb 11.5 L Hct 34.4 L Plt Count 267 Sodium 139 Potassium 4.1 Chloride 106 Carbon Dioxide 26 Anion Gap 11 BUN 10 Creatinine 0.70 Estimated GFR (MDRD) > 60 Glucose 109 H Calculated Osmolality 268 L Lactic Acid 0.9 Calcium 8.2 L Magnesium 1.80 [id number]-Tqkjszwhira Pept 2550 H - Assessment (1) Sepsis Acute A41.9 - SEPSIS, UNSPECIFIED ORGANISM Qualifiers: Sepsis type: Streptococcus, other Qualified Code(s): A40.8 - Other streptococcal sepsis Comment/Plan: Patient with Enterococcus in her blood cultures. This may be contributing to her recurrent tachyarrhythmias. She also has valvular heart disease already. Will review with cardiology and repeat blood cultures. Cultures were drawn on 07/27/16 and she did recieve 3L of IVF at that time, so adequate treatment was given although diagnosis was not made until later. Has been on IV antibiotics for 5 days. Needs at least 2 more days, if repeat blood cultures are negative. Continue IV Unasyn. (2) Acute kidney injury Acute N17.9 - ACUTE KIDNEY FAILURE, UNSPECIFIED Comment/Plan: Gentle IV hydration was be provided, held Lasix initially, then gradually re-introduced it and stopped lisinopril. Renal function has returned to normal. Reduced previous dose of diltiazem and discontinued digoxin due to hallucinations. 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 Have increased metoprolol, and replaced potassium & magnesium, which are normal now. (4) Digoxin toxicity Acute T46.0X1A - POISONING BY CARDI-STIM GLYCOS/DRUG SIMLAR ACT, ACC, INIT Qualifiers: Encounter type: initial encounter Comment/Plan: She had digoxin toxicity upon presentation to the hospital. Held digoxin and calcium channel sandra initially, will repeated digoxin level to verify toxicity had resolved. Resumed initially due to tachyarrhythmias. Maintained K more than 4, magnesium more than 2, & continued telemetry monitoring. Will stop this drug as family is reporting patient hallucinating and continued use with diltiazem can lead to this interaction and digoxin toxicity. (5) UTI (urinary tract infection) Acute N39.0 - URINARY TRACT INFECTION, SITE NOT SPECIFIED Qualifiers: Urinary tract infection type: site unspecified Hematuria presence: without hematuria Qualified Code(s): N39.0 - Urinary tract infection, site not specified Comment/Plan: Appears to be Enterococcus UTI- changed IV antibiotic to Unasyn IV. 2nd set blood cultures pending. 1st set + Enterococcus. (6) Dyspnea Acute R06.00 - DYSPNEA, UNSPECIFIED Qualifiers: Dyspnea type: shortness of breath Qualified Code(s): R06.02 - Shortness of breath Comment/Plan: Multifactorial- in part due to COPD exacerbation, partly due to atrial fibrillation and CHF. (7) Acute exacerbation of chronic obstructive airways disease Acute J44.1 - CHRONIC OBSTRUCTIVE PULMONARY DISEASE W (ACUTE) EXACERBATION Comment/Plan: Steadily better. Complete course of antibiotics and wean steroids. 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 Keep magnesium more than 2 and potassium more than 4. Continue anticoagulation w/ Xarelto
[2016-08-02] MEDS: RIVAROXABAN 10 MG TAB PO SCH (16:44)
[2016-08-02] MEDS: OXYCODONE HCL 5 MG TABLET PO PRN (18:04)
[2016-08-02] MEDS: POTASSIUM CHLORIDE 20 MEQ TAB PO ONE ×2 (18:12→18:18)
[2016-08-02] MEDS ORDERED: POTASSIUM CHLORIDE 20 MEQ TAB PO SCH (21:00)
[2016-08-03] MEDS: AMPICILLIN-SULBACTAM 3 GM in NS 100 ML IV SCH ×5 (00:20→23:39)
[2016-08-03] MEDS: OXYCODONE HCL 5 MG TABLET PO PRN (00:20)
[2016-08-03] MEDS: Albuterol/Ipratropium Neb 3 ML NEB NEB SCH ×4 (02:30→19:51)
[2016-08-03] MEDS: METOPROLOL TARTRATE 50 MG TAB PO SCH ×3 (06:47→20:45)
[2016-08-03] MEDS: DILTIAZEM HCL 120 MG CAPSULE.CR PO SCH (07:52)
[2016-08-03] MEDS: FUROSEMIDE 40 MG TAB PO SCH (07:52)
[2016-08-03] MEDS: POTASSIUM CHLORIDE 20 MEQ TAB PO SCH ×2 (07:52→17:19)
[2016-08-03] MEDS: PROBIOTIC BLEND TAB PO SCH ×2 (07:53→17:19)
[2016-08-03] MEDS: ATORVASTATIN 20 MG TAB PO SCH (07:53)
--- NOTE | 2016-08-03 15:53 | GENMEDPROG ---
Chief Complaint: Enterococcus sepsis, acute kidney injury, UTI, valvular heart disease w/ sys CHF , dementia w/ toxic met. encephalopathy Subjective Note: hallucinations are resolving, patient seems back to baseline mentally, but now c /o cough Currently: Reports: PANTOJA. Denies: SOB, Nausea and Vomiting, Reflux Sx DVT Prophylaxis: Yes - Physical Examination Vital Signs and I&O: Last Vital Signs Temp 97.9 F 08/03/16 11:36 Pulse 62 08/03/16 15:43 Resp 20 08/03/16 11:36 BP 134/61 08/03/16 11:36 Pulse Ox 93 08/03/16 11:36 Oxygen Pulse Oxygen Saturation 93 O2 Device Room Air Oxygen Flow Rate 2 Fraction of Inspired Oxygen ( FIO2) Intake & Output 07/31/16 08/01/16 08/02/16 08/03/16 23:59 23:59 23:59 23:59 Intake Total 8177 268 7718 662 Output Total 2140 1550 2825 2075 Balance -485 -8441 -5573 -9037 Patient's weight 52.362 kg 52.22 kg 51.664 kg 51.426 kg General: Mild distress, Weakness, Other (confused). negative: Alert HEENT: Normal, PERRLA, EOMI, Anicteric Sclera, Mucous membr. moist/pink Neck: Full range of motion, Normal Trachea alignment, Normal inspection, No Masses palpable, Supple Lymphatics: Normal Respiratory: Normal - CTA Cardiovascular: Regular rate and rhythm, Normal S1, Normal S2, Murmurs, Good Pedal Pulses. negative: LE Edema GI: Normal bowel sounds, Soft, Non tender, No masses Extremities/Musculoskeletal: Normal pulses, Edema, DJD, FROM Skin: Warm,Dry and Intact, No rashes Neurological: Normal speech, Strength at 5/5 X4 ext, Normal tone, Cranial nerves 3-12 NL Psych/Mental Status: Agitated, Confused, Disoriented - Assessment (1) Sepsis Acute A41.9 - SEPSIS, UNSPECIFIED ORGANISM Qualifiers: Sepsis type: Streptococcus, other Qualified Code(s): A40.8 - Other streptococcal sepsis Comment/Plan: Patient with Enterococcus in her blood cultures. This may be contributing to her recurrent tachyarrhythmias. She also has valvular heart disease already. Will review with cardiology and repeat blood cultures. Cultures were drawn on 07/27/16 and she did recieve 3L of IVF at that time, so adequate treatment was given although diagnosis was not made until later. Has been on IV antibiotics for 5 days. Needs at least 2 more days, repeat blood cultures are negative. Continue IV Unasyn. Discharge home (or to SNF) on Thursday. (2) Acute kidney injury Acute N17.9 - ACUTE KIDNEY FAILURE, UNSPECIFIED Comment/Plan: Gentle IV hydration was be provided, held Lasix initially, then gradually re-introduced it and stopped lisinopril. Renal function has returned to normal. Reduced previous dose of diltiazem and discontinued digoxin due to hallucinations. 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 Have increased metoprolol, and replaced potassium & magnesium, which are normal now. NT-pro BNP is down to 2550 from 6120 on admission. Heart rate is well controlled on current regimen. Should be stable for discharge in AM. (4) Digoxin toxicity Acute T46.0X1A - POISONING BY CARDI-STIM GLYCOS/DRUG SIMLAR ACT, ACC, INIT Qualifiers: Encounter type: initial encounter Comment/Plan: She had digoxin toxicity upon presentation to the hospital. Held digoxin and calcium channel sandra initially, will repeated digoxin level to verify toxicity had resolved. Resumed initially due to tachyarrhythmias. Maintained K more than 4, magnesium more than 2, & continued telemetry monitoring. Will stop this drug as family is reporting patient hallucinating and continued use with diltiazem can lead to this interaction and digoxin toxicity. (5) UTI (urinary tract infection) Acute N39.0 - URINARY TRACT INFECTION, SITE NOT SPECIFIED Qualifiers: Urinary tract infection type: site unspecified Hematuria presence: without hematuria Qualified Code(s): N39.0 - Urinary tract infection, site not specified Comment/Plan: Appears to be Enterococcus UTI- changed IV antibiotic to Unasyn IV. 2nd set blood cultures pending. 1st set + Enterococcus. (6) Atrial fibrillation with RVR Chronic I48.91 - UNSPECIFIED ATRIAL FIBRILLATION Comment/Plan: Continue home meds. Keep magnesium more than 2 and potassium more than 4. Continue anticoagulation w/ Xarelto (7) Dyspnea Acute R06.00 - DYSPNEA, UNSPECIFIED Qualifiers: Dyspnea type: shortness of breath Qualified Code(s): R06.02 - Shortness of breath Comment/Plan: Multifactorial- in part due to COPD exacerbation, partly due to atrial fibrillation and CHF. (8) Acute exacerbation of chronic obstructive airways disease Acute J44.1 - CHRONIC OBSTRUCTIVE PULMONARY DISEASE W (ACUTE) EXACERBATION Comment/Plan: Steadily better. Complete course of antibiotics and wean steroids. (9) COPD (chronic obstructive pulmonary disease) with emphysema Chronic J43.9 - EMPHYSEMA, UNSPECIFIED Qualifiers: Emphysema type: unspecified Qualified Code(s): J43.9 - Emphysema, unspecified Comment/Plan: Continue supplemental O2, nebulized bronchodilators, continue incentive spirometer
[2016-08-03] MEDS: RIVAROXABAN 10 MG TAB PO SCH (17:19)
[2016-08-04] MEDS: Albuterol/Ipratropium Neb 3 ML NEB NEB SCH ×3 (01:53→15:44)
[2016-08-04] MEDS: METOPROLOL TARTRATE 50 MG TAB PO SCH ×2 (06:00→15:08)
[2016-08-04] MEDS: AMPICILLIN-SULBACTAM 3 GM in NS 100 ML IV SCH ×2 (06:04→11:01)
[2016-08-04 08:06] VITALS: BP 139/64; PULSE 78; TEMP 97.9
[2016-08-04] MEDS: PROBIOTIC BLEND TAB PO SCH (08:39)
[2016-08-04] MEDS: POTASSIUM CHLORIDE 20 MEQ TAB PO SCH (08:39)
[2016-08-04] MEDS: DILTIAZEM HCL 120 MG CAPSULE.CR PO SCH (08:39)
[2016-08-04] MEDS: ATORVASTATIN 20 MG TAB PO SCH (08:39)
[2016-08-04] MEDS: FUROSEMIDE 40 MG TAB PO SCH (08:39)
--- NOTE | 2016-08-04 09:06 | PCM.DCS92 ---
- Final/Secondary Discharge Diagnosis (1) Sepsis Acute A41.9 - SEPSIS, UNSPECIFIED ORGANISM Streptococcus, other A40.8 - Other streptococcal sepsis Comment: Patient with Enterococcus in her blood cultures. This may be contributing to her recurrent tachyarrhythmias. She also has valvular heart disease already. Will review with cardiology and repeat blood cultures. Cultures were drawn on 07/27/16 and she did recieve 3L of IVF at that time, so adequate treatment was given although diagnosis was not made until later. Has been on IV antibiotics for 5 days. Needs at least 2 more days, repeat blood cultures are negative. Continue IV Unasyn. Discharge to snf TODAY TO COMPLETE 21 DAYS OF ORAL ANTIBIOTICS (2) Acute kidney injury Acute N17.9 - ACUTE KIDNEY FAILURE, UNSPECIFIED Present on Admission: Yes Comment: Gentle IV hydration was be provided, held Lasix initially, then gradually re-introduced it and stopped lisinopril. Renal function has returned to normal. Reduced previous dose of diltiazem and discontinued digoxin due to hallucinations. (3) CHF (congestive heart failure) Acute I50.9 - HEART FAILURE, UNSPECIFIED combined unspecified congestive heart failure chronicity I50.40 - Unspecified combined systolic (congestive) and diastolic (congestive) heart failure Comment: This patient is severely impaired with EF of 25-30%, has atrial fibrillation with tachycardia, now resolved and heart rate controlled again. Have increased metoprolol, and replaced potassium & magnesium, which are normal now. NT-pro BNP is down to 2550 from 6120 on admission. Heart rate is well controlled on current regimen. Should be stable for discharge in AM. (4) Digoxin toxicity Acute T46.0X1A - POISONING BY CARDI-STIM GLYCOS/DRUG SIMLAR ACT, ACC, INIT Present on Admission: Yes initial encounter Comment: She had digoxin toxicity upon presentation to the hospital. Held digoxin and calcium channel sandra initially, will repeated digoxin level to verify toxicity had resolved. Resumed initially due to tachyarrhythmias. Maintained K more than 4, magnesium more than 2, & continued telemetry monitoring. Will stop this drug as family is reporting patient hallucinating and continued use with diltiazem can lead to this interaction and digoxin toxicity. (5) UTI (urinary tract infection) Acute N39.0 - URINARY TRACT INFECTION, SITE NOT SPECIFIED Present on Admission: Yes site unspecified without hematuria N39.0 - Urinary tract infection, site not specified Comment: Appears to be Enterococcus UTI- changed IV antibiotic to Unasyn IV. 2nd set blood cultures pending. 1st set + Enterococcus. (6) Atrial fibrillation with RVR Chronic I48.91 - UNSPECIFIED ATRIAL FIBRILLATION Comment: Continue home meds. Keep magnesium more than 2 and potassium more than 4. Continue anticoagulation w/ Xarelto (7) Dyspnea Acute R06.00 - DYSPNEA, UNSPECIFIED shortness of breath R06.02 - Shortness of breath Comment: Multifactorial- in part due to COPD exacerbation, partly due to atrial fibrillation and CHF. (8) Acute exacerbation of chronic obstructive airways disease Acute J44.1 - CHRONIC OBSTRUCTIVE PULMONARY DISEASE W (ACUTE) EXACERBATION Comment: Steadily better. Complete course of antibiotics and wean steroids. 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 Fuctional Discharge Status: Walker Assistance, Fall Risk, Deconditioning, Ambulatory Dysfunction Physician Follow up/Referrals: Jill Wade MD [Staff Physician] - Three Weeks Home Medications / New Prescriptions: New Diltiazem HCl [Cardizem Cd] 120 mg PO DAILY #30 capsule.cr Probiotic Blend [Luzmaria Q] 1 tab PO BIDLS #60 tablet POTASSIUM CHLORIDE Tablet [K-DUR 20 mEq Tablet*] 20 meq PO BIDWM #60 tab.er.prt Oxycodone Immediate Release [Oxycodone Immediate Release (OxyIR)] 2.5 mg PO Q6H PRN #20 tablet PRN Reason: Moderate To Severe Pain Ampicillin Trihydrate 500 mg PO Q8H #30 capsule Continue Ergocalciferol (Vitamin D2) [Vitamin D2 (ergocalciferol)] 50,000 units PO TUTH Alprazolam [Xanax] 0.25 mg PO BID PRN PRN Reason: Anxiety Rivaroxaban [Xarelto] 20 mg PO DAILY #30 tablet Digoxin [Lanoxin, Digitek] 0.125 mg PO DAILY #30 tab Amlodipine Besylate [Norvasc] 5 mg PO HS Furosemide [Lasix] 40 mg PO DAILY@0800 #30 tablet Atorvastatin Calcium [Lipitor] 20 mg PO DAILY Discontinued Lisinopril 10 mg PO DAILY Diltiazem HCl [Cardizem Cd] 240 mg PO QHS #30 cap.er.24h Metoprolol Succinate (XL) [Toprol Xl] 25 mg PO DAILY Discharge Home Medication List Alprazolam [Xanax] 0.25 mg PO BID PRN 05/30/16 [History Confirmed 07/27/16] Ergocalciferol (Vitamin D2) [Vitamin D2 (ergocalciferol)] 50,000 units PO TUTH 05/30/16 [History Confirmed 07/27/16] Rivaroxaban [Xarelto] 20 mg PO DAILY #30 tablet 06/03/16 [Rx Confirmed 07/27/16] Digoxin [Lanoxin, Digitek] 0.125 mg PO DAILY #30 tab 06/28/16 [Rx Confirmed ] Amlodipine Besylate [Norvasc] 5 mg PO HS 07/07/16 [History Confirmed 07/27/16] Furosemide [Lasix] 40 mg PO DAILY@0800 #30 tablet 07/09/16 [Rx Confirmed ] Atorvastatin Calcium [Lipitor] 20 mg PO DAILY 07/27/16 [History Confirmed ] Ampicillin Trihydrate 500 mg PO Q8H 21 Days 08/04/16 [Rx] Diltiazem HCl [Cardizem Cd] 120 mg PO DAILY #30 capsule.cr 08/04/16 [Rx] Oxycodone Immediate Release [Oxycodone Immediate Release (OxyIR)] 2.5 mg PO Q6H PRN #20 tablet 08/04/16 [Rx] POTASSIUM CHLORIDE Tablet [K-DUR 20 mEq Tablet*] 20 meq PO BIDWM #60 tab.er.prt 08/04/16 [Rx] Probiotic Blend [Luzmaria Q] 1 tab PO BIDLS #60 tablet 08/04/16 [Rx] New Discharge Medications (Rx) Ampicillin Trihydrate 500 mg PO Q8H 21 Days 08/04/16 [Rx] Diltiazem HCl [Cardizem Cd] 120 mg PO DAILY #30 capsule.cr 08/04/16 [Rx] Oxycodone Immediate Release [Oxycodone Immediate Release (OxyIR)] 2.5 mg PO Q6H PRN #20 tablet 08/04/16 [Rx] POTASSIUM CHLORIDE Tablet [K-DUR 20 mEq Tablet*] 20 meq PO BIDWM #60 tab.er.prt 08/04/16 [Rx] Probiotic Blend [Luzmaria Q] 1 tab PO BIDLS #60 tablet 08/04/16 [Rx] O2 Device: Room Air Diet at Discharge: As Tolerated, Regular Activity: No Restrictions, As Tolerated Call Office For: Worsening Symptoms, Fever over 100.5, Pain Uncontrolled By Meds - DC Summary Notes HPI/Notes: Patient is a 86 years old woman with cardiomyopathy latest estimation of ejection fraction was about 2 weeks ago she was fine to have ejection fraction 25-30% by echocardiogram. At that time she was also find to be in atrial flutter. Care history of paroxysmal atrial fibrillation, hypertension, history of hip replacement. Presented to the hospital with chief complaint of weak, fatigue, tiredness, nausea. She is a poor historian I spoke to her son in [facility] who was present with her in the emergency room. Denies having any chest pain tightness squeezing pressure burning chest. He said that usually she is able to walk somewhat with her walker but lately she was not able to do that. In the emergency room she was fine to be bradycardiac however blood pressure maintain at 100 systolic level, she was fine to have toxic level of digoxin. Admission is advised to manage those issues. At the moment of my interview laddillon lays in the bed seems to be comfortable. Hospital Course Note:: Discharge summary on patient named ZURI PATRICIA admitted to [facility] on 07/27/16 by Art Robertson MD. Date of discharge is []. PLEASANT 86-YEAR-OLD FEMALE ADMITTED TO [facility] WITH ACUTE SEPSIS. SHE WAS FOUND TO HAVE ENTEROCOCCUS SEPSIS AND ACUTE KIDNEY INJURY AND A URINARY TRACT INFECTION. SHE HAS VALVULAR HEART DISEASE WITH SYSTOLIC CONGESTIVE HEART FAILURE AND DEMENTIA. GIVEN HER VALVULAR HEART DISEASE SHE WILL NEED TO COMPLETE 21 DAYS OF ANTIBIOTICS. HER ENTEROCOCCUS WAS FOUND SENSITIVE TO AMPICILLIN. AFTER TREATMENT BEGAN THE PATIENT SLOWLY IMPROVED AND TODAY HAS REACHED MAXIMAL BENEFIT OF HOSPITALIZATION. SHE WILL COMPLETE A 21 DAY COURSE OF ORAL AMPICILLIN TRY HYDRATE. SHE WILL FOLLOW UP WITH DR. WADE HER PRIMARY CARE PHYSICIAN. PATIENT IS STABLE FOR DISCHARGE TO SKILLED FACILITY. Total Time: 55 MIN Code: 50455 (>30min.) - Physical Exam Vital Signs: Last Vital Signs Temp 97.9 F 08/04/16 08:05 Pulse 78 08/04/16 08:05 Resp 20 08/04/16 08:05 BP 139/64 08/04/16 08:05 Pulse Ox 93 08/04/16 08:05 Oxygen Pulse Oxygen Saturation 93 O2 Device Room Air Oxygen Flow Rate 2 Fraction of Inspired Oxygen ( FIO2) Constitutional: No apparent distress, Alert Oriented to: Time, Person, Place - HEENT Head: Normal Eye: negative: Conjunctival Injection, Scleral Icterus Oropharynx: negative: Drooling Nose: No Symptoms Reported - Respiratory/Cardiovascular Respiratory: Normal - CTA Cardiovascular: Normal (RRR , Normal S1, S2. No murmurs, rubs, or gallops. PMI non-displaced. Carotids: no carotid bruits. No bradycardia or tachycardia. DP pulses 2+ bilaterally.) - GI Auscultation: Normal Palpation: Normal Tenderness: Non tender - Musculoskeletal Back: Normal Extremities: Normal - Integumentary Skin: Normal (Warm dry no rashes) Lymphatics: Normal - Neurologic Memory Impaired: Normal Motor Function: Normal (Motor 5/5 throughout.Normal tone, Pulses 2+ No cyanosis or edema, FROM) Cranial Nerve: Normal (CN II-XII intact sensation, strength 5/5) Cerebellar: Normal (Babinski: toes downgoing bilaterally. Intact Finger to nose. Sensory grossly intact to light touch. Intact rapid alternating movements bilaterally. No pronator drift.) Mood Description: Normal Thought: Coherent Perception: Normal - Other Exam Other Exam Findings: Laboratory Tests 07/27/16 07/27/16 07/27/16 09:25 09:25 10:10 WBC RBC Hgb Hct MCV Plt Count PT 14.9 H INR 1.4 APTT 33.3 pH 7.440 pCO2 40.0 pO2 50.0 L HCO3 27.2 H Total CO2 28.4 H Base Excess 2.8 H FiO2 % 21% Sodium Potassium Chloride Carbon Dioxide Anion Gap BUN Creatinine Estimated GFR (MDRD) Glucose POC Capillary Glucose Calculated Osmolality Calcium Magnesium Moh-U-Zgpjqqflruk Pept Stool Occult Blood Digoxin 2.70 H* 07/29/16 07/31/16 07/31/16 21:57 05:25 16:53 WBC RBC Hgb Hct MCV Plt Count PT INR APTT pH pCO2 pO2 HCO3 Total CO2 Base Excess FiO2 % Sodium Potassium Chloride Carbon Dioxide Anion Gap BUN Creatinine Estimated GFR (MDRD) Glucose POC Capillary Glucose 122 H Calculated Osmolality Calcium Magnesium Exe-X-Taeaxgqcvzw Pept 6120 H Stool Occult Blood Pos H Digoxin 0.70 L 08/02/16 08/02/16 03:25 03:25 WBC 8.5 RBC 3.85 L Hgb 11.5 L Hct 34.4 L MCV 89 Plt Count 267 PT INR APTT pH pCO2 pO2 HCO3 Total CO2 Base Excess FiO2 % Sodium 139 Potassium 4.1 Chloride 106 Carbon Dioxide 26 Anion Gap 11 BUN 10 Creatinine 0.70 Estimated GFR (MDRD) > 60 Glucose 109 H POC Capillary Glucose Calculated Osmolality 268 L Calcium 8.2 L Magnesium 1.80 Gpu-O-Snubbenpzso Pept 2550 H Stool Occult Blood Digoxin Microbiology 07/27/16 10:05 Blood Blood Culture - Final Enterococcus faecalis 07/27/16 09:29 Urine - In/Out Catheter Urine Culture - Final Enterococcus faecalis 07/27/16 09:25 Blood Blood Culture - Final Enterococcus faecalis sensitive to ampicillin
== END 2016-08-04 19:47 | DRG 872 ==
LOC: ED 09:09 → PCU 11:08
PROVIDERS: ADMIT Internal Medicine; ATTEND Hospitalist
PROC: 4A033R1 Measurement of Arterial Saturation, Peripheral, Percutaneous Approach (ICD-10-PCS; principal; 2016-07-27)
DX: A40.8 Other streptococcal sepsis (principal); R65.20 Severe sepsis without septic shock; N17.9 Acute kidney failure, unspecified; I38 Endocarditis, valve unspecified; I50.42 Chronic combined systolic (congestive) and diastolic (congestive) heart failure; N39.0 Urinary tract infection, site not specified; J44.1 Chronic obstructive pulmonary disease with (acute) exacerbation; I42.9 Cardiomyopathy, unspecified; T46.0X1A Poisoning by cardiac-stimulant glycosides and drugs of similar action, accidental (unintentional), initial encounter; Y92.9 Unspecified place or not applicable; I48.0 Paroxysmal atrial fibrillation; I10 Essential (primary) hypertension; F03.90 Unspecified dementia, unspecified severity, without behavioral disturbance, psychotic disturbance, mood disturbance, and anxiety; R19.7 Diarrhea, unspecified; I25.10 Atherosclerotic heart disease of native coronary artery without angina pectoris; E78.00 Pure hypercholesterolemia, unspecified; K21.9 Gastro-esophageal reflux disease without esophagitis; M19.011 Primary osteoarthritis, right shoulder; Z96.643 Presence of artificial hip joint, bilateral; F41.9 Anxiety disorder, unspecified; Z87.440 Personal history of urinary (tract) infections; Z87.891 Personal history of nicotine dependence
CPT/HCPCS: 36415; 36600; 51701; 51798; 70450; 71010; 80048; 80053; 80162; 81001; 82272; 82803; 82962; 83605; 83735; 83880; 84484; 85025; 85027; 85610; 85730; 87040; 87077; 87086; 87186; 87493; 93005; 94640; 96372; 97161; 99284; J0295; J0696; J1630; J1940; J2060; J3370; J3475; J3490; J7030; J7060; J7070; J7620